=== PATIENT | female | born 1990 | race Caucasian/White ===

== ENCOUNTER 2016-10-24 00:16 | Emergency (ER) | payer MEDICAID ==
[2016-10-24 00:27] VITALS: TEMP 98.2
[2016-10-24] MEDS ORDERED: NS 1,000 ML IV ONE ×2 (00:28→00:36)
[2016-10-24 00:33] LABS: % IMMATURE GRANULYOCYTES 0.6 % (0.0-1.1); ABSOLUTE IMMATURE GRANULOCYTES 0.15 10^3/uL (0.00-0.10); ADD DIFF? NO; ADD MORPH? NO; ADD SCAN? NO; ATYPICAL LYMPHOCYTE FLAG 0 (0-99); FRAGMENT RBC FLAG 0 (0-99); HEMATOCRIT 41.1 % (38.0-47.0); HEMOGLOBIN 14.7 g/dL (12.6-16.3); LEFT SHIFT FLG 0 (0-99); LIPEMIA HEMOLYSIS FLAG 90 (0-99); MEAN CELL HEMOGLOBIN 31.4 pg (27.9-34.1); MEAN CELL HEMOGLOBIN CONCENTR. 35.8 g/dL (32.4-36.7); MEAN CELL VOLUME 87.8 fL (81.5-99.8); MEAN PLATELET VOLUME 10.2 fL (8.7-11.7); PLATELET CLUMPS FLAG 0 (0-99); PLATELET COUNT 360 10^3/uL (150-400); RED BLOOD CELL COUNT 4.68 10^6/uL (4.18-5.33); RED CELL DISTRIBUTION WIDTH 12.3 % (11.5-15.2)
[2016-10-24] MEDS ORDERED: PROMETHAZINE HCL 25 MG/ML INJ IVP ONE (00:36)
[2016-10-24] MEDS ORDERED: KETOROLAC 30 MG/1 ML SDV IVP ONE (00:36)
--- NOTE | 2016-10-24 00:39 | EDPHY ---
H & P Stated Complaint: CVS Time Seen by Provider: 10/24/16 00:31 HPI/ROS: CHIEF COMPLAINT: Vomiting and diarrhea HISTORY OF PRESENT ILLNESS: The patient is a 26-year-old female who comes to the emergency department by EMS complaining of nausea, vomiting and diarrhea. She has a history of cyclic vomiting syndrome however she states that today she has been exposed to coworkers who have had GI bugs. She has had diarrhea which is unusual for her. No blood in her vomit or stool. No fever. No chest pain or shortness of breath. She does have abdominal pain and describes it as moderate and baseline. REVIEW OF SYSTEMS: Constitutional: denies: chills, fever, recent illness, recent injury EENTM: denies: blurred vision, double vision, nose congestion Respiratory: denies: cough, shortness of breath Cardiac: denies: chest pain, irregular heart rate, lightheadedness, palpitations Gastrointestinal/Abdominal: See HPI Genitourinary: denies: dysuria, frequency, hematuria, pain Musculoskeletal: denies: joint pain, muscle pain Skin: denies: lesions, rash, jaundice, bruising Neurological: denies: headache, numbness, paresthesia, tingling, dizziness, weakness Hematologic/Lymphatic: denies: blood clots, easy bleeding, easy bruising Immunologic/allergic: denies: HIV/AIDS, transplant EXAM: GENERAL: Well-appearing, well-nourished and in no acute distress. HEAD: Atraumatic, normocephalic. EYES: Pupils equal round and reactive to light, extraocular movements intact, sclera anicteric, conjunctiva are normal. ENT: TMs normal, nares patent, oropharynx clear without exudates. Moist mucous membranes. NECK: Normal range of motion, supple without lymphadenopathy or JVD. LUNGS: Breath sounds clear to auscultation bilaterally and equal. No wheezes rales or rhonchi. HEART: Regular rate and rhythm without murmurs, rubs or gallops. ABDOMEN: Soft, nontender, normoactive bowel sounds. No guarding, no rebound. No masses appreciated. BACK: No CVA tenderness, no spinal tenderness, step-offs or deformities EXTREMITIES: Normal range of motion, no pitting or edema. No clubbing or cyanosis. NEUROLOGICAL: Cranial nerves II through XII grossly intact. Normal speech, normal gait. 5/5 strength, normal movement in all extremities, normal sensation PSYCH: Normal mood, normal affect. SKIN: Warm, dry, normal turgor, no visible rashes or lesions. Source: Patient, EMS Exam Limitations: No limitations - Personal History LMP (Females 10-55): 1-7 Days Ago Current Tetanus Diphtheria and Acellular Pertussis (TDAP): Yes Tetanus Vaccine Date: 2011 - Medical/Surgical History Hx Asthma: Yes Hx Chronic Respiratory Disease: No Hx Diabetes: No Hx Cardiac Disease: No Hx Renal Disease: No Hx Cirrhosis: No Hx Alcoholism: No Hx HIV/AIDS: No Hx Splenectomy or Spleen Trauma: No Other PMH: PMH: anxiety, asthma, CVS (cyclic vomiting syndrome), ptsd, frequent marijuana use. PSH: T&A - Family History Significant Family History: Hypertension - Social History Smoking Status: Never smoked Alcohol Use: Occasionally Drug Use: Marijuana Constitutional: Initial Vital Signs Temperature (C) 36.8 C 10/24/16 00:23 Heart Rate 87 10/24/16 00:23 Respiratory Rate 18 10/24/16 00:23 Blood Pressure 147/88 H 10/24/16 00:23 O2 Sat (%) 98 10/24/16 00:23 O2 Delivery Mode Room Air Allergies/Adverse Reactions: aspirin Allergy (Unknown, Verified 10/24/16 00:23) Unknown amoxicillin Allergy (Verified 10/24/16 00:23) amoxicillin trihydrate [From Augmentin] Allergy (Verified 10/24/16 00:23) potassium clavulanate [From Augmentin] Allergy (Verified 10/24/16 00:23) contrast dye Allergy (Uncoded 09/13/16 20:38) Home Medications: Medication Instructions Recorded Hydroxyzine HCl 04/29/16 Zofran 04/29/16 Citalopram 06/21/16 Prazosin HCl 06/21/16 VYVANSE 06/21/16 Cephalexin [Keflex] 500 mg PO Q6H #28 cap 06/29/16 Promethazine 25 mg Prepack #4 1 btl TAKEHOME Q6-8PRN PRN #1 btl 06/29/16 [Phenergan 25 mg Prepack #4] Promethazine HCl [Phenergan 25mg 25 mg PO Q4-6PRN PRN #14 tab 07/05/16 (*)] Promethazine HCl [Phenergan 25mg 25 mg PO TID PRN #30 tab 10/24/16 (RX)] Medical Decision Making ED Course/Re-evaluation: During the patient's last visit she received Benadryl, Phenergan, Haldol and fluids and felt much better. I will treat her with this initially as well as Toradol. 2:20 a.m. we discussed the patient's CT and lab results. She is feeling much better. She is not having any abdominal pain currently. She is eager to go home and declines further workup or testing. She does wish to have a prescription for Phenergan. We discussed indications for returning. Differential Diagnosis: Partial list of the Differential diagnosis considered include but were not limited to; gastritis, food poisoning, cyclic vomiting and although unlikely based on the history and physical exam, I also considered obstruction, ischemia , pancreatitis, biliary disease. I discussed these differential diagnoses and the plan with the patient as well as the usual and expected course. The patient understands that the diagnosis is provisional and that in medicine we are not always correct and that further workup is often warranted. Usual and customary warnings were given. All of the patient's questions were answered. The patient was instructed to return to the emergency department should the symptoms at all worsen or return, otherwise to followup with the physician as we discussed. - Data Points Laboratory Results: Laboratory Results 10/24/16 00:20 10/24/16 00:20 10/24/16 00:20 WBC 26.32 H 10^3/uL (3.80-9.50) RBC 4.68 10^6/uL (4.18-5.33) Hgb 14.7 g/dL (12.6-16.3) Hct 41.1 % (38.0-47.0) MCV 87.8 fL (81.5-99.8) MCH 31.4 pg (27.9-34.1) MCHC 35.8 g/dL (32.4-36.7) RDW 12.3 % (11.5-15.2) Plt Count 360 10^3/uL (150-400) MPV 10.2 fL (8.7-11.7) Neut % (Auto) 87.4 H % (39.3-74.2) Lymph % (Auto) 6.4 L % (15.0-45.0) [place] % (Auto) 5.1 % (4.5-13.0) Eos % (Auto) 0.1 L % (0.6-7.6) Baso % (Auto) 0.4 % (0.3-1.7) Nucleat RBC Rel Count 0.0 % (0.0-0.2) Absolute Neuts (auto) 22.99 H 10^3/uL (1.70-6.50) Absolute Lymphs (auto) 1.69 10^3/uL (1.00-3.00) Absolute Monos (auto) 1.35 H 10^3/uL (0.30-0.80) Absolute Eos (auto) 0.03 10^3/uL (0.03-0.40) Absolute Basos (auto) 0.11 H 10^3/uL (0.02-0.10) Absolute Nucleated RBC 0.00 10^3/uL (0-0.01) Immature Gran % 0.6 % (0.0-1.1) Immature Gran # 0.15 H 10^3/uL (0.00-0.10) Sodium 145 H mEq/L (134-144) Potassium 4.3 mEq/L (3.5-5.2) Chloride 108 mEq/L (97-110) Carbon Dioxide 20 L mEq/l (22-31) Anion Gap 17 mEq/L (8-16) BUN 6 L mg/dL (7-23) Creatinine 0.7 mg/dL (0.6-1.0) Estimated GFR > 60 Glucose 171 H mg/dL (70-100) Calcium 9.7 mg/dL (8.5-10.4) Total Bilirubin 1.5 H mg/dL (0.1-1.4) Conjugated Bilirubin 0.7 H mg/dL (0.0-0.5) Unconjugated Bilirubin 0.8 mg/dL (0.0-1.1) AST 28 IU/L (14-46) ALT 31 IU/L (9-52) Alkaline Phosphatase 100 IU/L (38-126) Total Protein 8.5 H g/dL (6.3-8.2) Albumin 5.1 H g/dL (3.5-5.0) Lipase 60.0 IU/L (23-300) Beta HCG, Qual NEGATIVE Medications Given: Discontinued Medications Diphenhydramine HCl (Benadryl Injection) 50 mg IVP EDNOW ONE Stop: 10/24/16 00:38 Last Admin: 10/24/16 01:04 Dose: 50 mg Sodium Chloride (Ns) 1,000 mls @ 0 mls/hr IV ONCE ONE PRN Reason: Wide Open Stop: 10/24/16 00:29 Last Admin: 10/24/16 00:29 Dose: 1,000 mls Sodium Chloride (Ns) 1,000 mls @ 0 mls/hr IV ONCE ONE PRN Reason: Wide Open Stop: 10/24/16 00:37 Last Admin: 10/24/16 00:55 Dose: Not Given Ketorolac Tromethamine (Toradol) 30 mg IVP EDNOW ONE Stop: 10/24/16 00:37 Last Admin: 10/24/16 01:03 Dose: 30 mg Promethazine HCl (Phenergan Injection) 25 mg IVP EDNOW ONE Stop: 10/24/16 00:37 Last Admin: 10/24/16 01:04 Dose: 25 mg Departure - Departure Disposition: Home, Routine, Self-Care Clinical Impression: Diarrhea Qualifiers: Qualifier Code: (R19.7) Diarrhea, unspecified Cyclic vomiting syndrome Qualifiers: Qualifier Code: (G43.A0) Cyclical vomiting, not intractable Condition: Fair Instructions: Acute Nausea and Vomiting (ED) Referrals: [place] STATE,. [Primary Care Provider] - As per Instructions Xena Wilkinson MD [Medical Doctor] - As per Instructions Prescriptions: Promethazine HCl [Phenergan 25mg (RX)] 25 mg PO TID PRN #30 tab PRN Reason: Nausea/Vomiting, Use 2nd
[2016-10-24 00:55] LABS: ALANINE AMINOTRANSFERASE 31 IU/L (9-52); ALBUMIN 5.1 g/dL (3.5-5.0); ALKALINE PHOSPHATASE 100 IU/L (38-126); ANION GAP 17 mEq/L (8-16); ASPARTATE AMINOTRANSFERASE 28 IU/L (14-46); BILIRUBIN,TOTAL 1.5 mg/dL (0.1-1.4); BILIRUBIN-CONJUGATED 0.7 mg/dL (0.0-0.5); BILIRUBIN-UNCONJUGATED 0.8 mg/dL (0.0-1.1); CALCIUM 9.7 mg/dL (8.5-10.4); CARBON DIOXIDE 20 mEq/l (22-31); CHLORIDE 108 mEq/L (97-110); CREATININE 0.7 mg/dL (0.6-1.0); GLOMERULAR FILTRATION RATE > 60; GLUCOSE 171 mg/dL (70-100); POTASSIUM 4.3 mEq/L (3.5-5.2); SODIUM 145 mEq/L (134-144); TOTAL PROTEIN 8.5 g/dL (6.3-8.2)
[2016-10-24 02:36] VITALS: BP 109/49; PULSE 62; RESP 16; O2SAT 97
--- NOTE | 2016-10-24 12:18 | CT ---
CT Abdomen and Pelvis Unenhanced (Renal Stone Protocol) Indication: Periumbilical and right flank pain with diarrhea. Comparison: CT abdomen and pelvis 06/29/2016 and 02/09/2015, pelvic ultrasound March 21, 2015 Technique: Axial unenhanced CT imaging was performed through the abdomen and pelvis without contrast. Dose red uction techniques were utilized. Findings: Abdomen: The lung bases are clear. The imaged noncontrast portions of the liver, spleen, gallbladder, pancreas and adrenal glands are un remarkable. No renal or ureteral stones are identified. There is no obstructive uropathy. Enteric as sessment is limited by under distention and lack of enteric contrast. Moderate stool is present in th e rectum. The colon and small bowel are normal caliber. The appendix is normal. There is no free air. A small fat-containing periumbilical hernia is present. The aorta is normal caliber. No aggressive osseous lesions are identified. Pelvis: No bladder or distal ureteral calcifications are identified. Malpositioned IUD is again not ed, with the right arm of the IUD likely within the myometrium, with the IV positioned low in the [place]. There is trace free fluid in the pelvis. Impression: 1. No acute findings. 2. Malpositioned IUD. Attention: This CT examination is specifically designed to evaluate patients who are clinically susp ected of having acute obstructive uropathy. This examination does not use radiographic contrast, and as such, provides only a limited evaluation of the abdomen, pelvis and retroperitoneum. If there i s further clinical suspicion for pathological conditions other than obstructive uropathy, a complete CT evaluation of the abdomen and pelvis utilizing intravenous, oral, and rectal contrast should be co nsidered. Findings discussed with Mike Duenas 10/24/2016 at 149 hours. The preliminary and final reports were concordant.
== END 2016-10-24 02:36 | disposition home or self-care (01) ==
LOC: EDUNIT#
DX: R19.7 Diarrhea, unspecified (principal); G43.A0 Cyclical vomiting, in migraine, not intractable; J45.909 Unspecified asthma, uncomplicated; E86.0 Dehydration
CPT/HCPCS: 96374; J1200; J1885; J2550

== ENCOUNTER 2016-10-24 06:52 | Emergency (ER) | payer MEDICAID ==
--- NOTE | 2016-10-24 06:52 | EDPHY ---
H & P Time Seen by Provider: 10/24/16 06:52 HPI/ROS: CHIEF COMPLAINT: Nausea and vomiting HISTORY OF PRESENT ILLNESS: This 26-year-old woman was seen earlier this evening in our emergency department for nausea and vomiting. She has a history of cyclic vomiting. She has CT at 1:20 a.m. today which was reported per Dr. Duenas by Dr. Mathews was normal. She was noted to have a leukocytosis of 26 ,000 and a negative test. Her venous bicarbonate was 20. Patient presents now with recurrent nausea and vomiting for the last 2-3 hours. She says symptoms are severe but not associated with hematemesis or coffee- ground emesis. She does have diffuse abdominal cramping and symptoms are worse when she tries to eat or drink anything. She can' t identify any recent triggers other than a recent URI and working more than usual. REVIEW OF SYSTEMS: Eye: no change in vision ENT: No ear pain. No eye symptoms. Cardiac: no chest pain or syncope Pulmonary: Recent nonproductive cough and sore throat and exposure to other people with URI symptoms. Abdomen: HPI. Does have some diarrhea but without blood or melena. Musculoskeletal: no back pain Skin: no rash Neuro: no headache Constitutional: no fever : no urinary symptoms or vaginal symptoms A comprehensive 10 point review of systems is otherwise negative aside from elements mentioned in the history of present illness. PAST MEDICAL HISTORY: Previous visits in our system for similar symptoms includes most recently; September 13, July 05, July 05, June, June 24, June 21. Includes cyclic vomiting, anxiety, PTSD. Asthma. Social history: Marijuana user. with 2 children General Appearance: Alert and conversant, cooperative. Eyes: No scleral icterus. ENT, Mouth: Dry mucous membranes. Otherwise normal pharynx without erythema exudate or trismus. Respiratory: Normal respiratory effort, breath sounds equal, lungs are clear to auscultation. Cardiovascular: Regular rate and rhythm. Gastrointestinal: Abdomen is soft and non tender. Neurological: Alert and oriented x3. Normally conversant. Face symmetric, normal movement and sensation in all extremities. Skin: Warm and dry, no rashes. Musculoskeletal: No peripheral edema and no joint swelling. Psychiatric: Moderately anxious. Hyperventilating with bilateral carpal spasms. Emergency Department course/MDM: IV Ativan 1 mg and normal saline 2 L, CT scan reviewed without IV contrast; radiology report preliminary entered, as "Nothing acute. Malpositioned IUD ( unchanged since 2014).". EKG performed to evaluate intervals prior to administration of haloperidol. She had normal CT imaging and negative lipase at previous visit. test negative earlier tonight. 720: EKG reviewed, haloperidol 2.5 mg and Benadryl 50 mg IV ordered. 810: White blood cell count noted to be decreased from previous at 18, but hematocrit 34 which is approximately 6 point drop from her baseline. At this time examined by me, sleepy, more comfortable, refused rectal exam. 849: Repeat CBC shows hematocrit 32. Possibility of gastrointestinal hemorrhage is considered. Also possibly dilutional with multiple liters of IV normal saline. 905: Patient feels better and wants to leave. 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 I discussed with her my concern about her hematocrit being 32 and possible gastrointestinal blood loss. My recommendation is for admission for further workup. Patient says she wants to leave and although she understands that my concern is that she might be losing blood her intestinal tract, she can't miss work today. She was seen by case management as well; to see if there is anything we can help with to change her mind. She also clearly appears to have capacity to make decisions regarding her care. Patient was warned regarding potential morbidity and mortality including but not limited to syncope or or blood transfusion if delayed diagnosis of gastrointestinal bleeding or other serious medical condition causing decrease in hematocrit. States she understands risks but still wants to leave because of work. 946: Urine normal, tolerating oral fluids, discharge per patient request against medical advice. Constitutional: Initial Vital Signs Temperature (C) 36.8 C 10/24/16 06:58 Heart Rate 87 10/24/16 06:58 Respiratory Rate 16 10/24/16 06:58 Blood Pressure 158/89 H 10/24/16 06:58 O2 Sat (%) 98 10/24/16 06:58 O2 Delivery Mode Room Air Allergies/Adverse Reactions: aspirin Allergy (Unknown, Verified 10/24/16 06:58) Unknown amoxicillin Allergy (Verified 10/24/16 06:58) amoxicillin trihydrate [From Augmentin] Allergy (Verified 01/26/17 06:58) potassium clavulanate [From Augmentin] Allergy (Verified 10/24/16 06:58) contrast dye Allergy (Uncoded 10/24/16 06:58) Home Medications: Medication Instructions Recorded Hydroxyzine HCl 04/29/16 Zofran 04/29/16 Citalopram 06/21/16 Prazosin HCl 06/21/16 VYVANSE 06/21/16 Cephalexin [Keflex] 500 mg PO Q6H #28 cap 06/29/16 Promethazine 25 mg Prepack #4 1 btl TAKEHOME Q6-8PRN PRN #1 btl 06/29/16 [Phenergan 25 mg Prepack #4] Promethazine HCl [Phenergan 25mg 25 mg PO Q4-6PRN PRN #14 tab 07/05/16 (*)] Promethazine HCl [Phenergan 25mg 25 mg PO TID PRN #30 tab 10/24/16 (RX)] Medical Decision Making - Diagnostics EKG Interpretation: 12-lead EKG interpreted by me; official reading is in trace master. My interpretation is sinus rhythm, rate 76, normal intervals. Differential Diagnosis: Differential considered including but not limited to cyclic vomiting syndrome, bowel obstruction, appendicitis, upper GI bleed, cholecystitis, pancreatitis. - Data Points Laboratory Results: Laboratory Results 10/24/16 08:35 10/24/16 07:43 10/24/16 10/24/16 10/24/16 09:25 08:35 07:43 WBC 15.90 H 10^3/uL 18.35 H D 10^3/uL (3.80-9.50) (3.80-9.50) RBC 3.55 L 10^6/uL 3.88 L 10^6/uL (4.18-5.33) (4.18-5.33) Hgb 11.3 L g/dL 12.1 L g/dL (12.6-16.3) (12.6-16.3) Hct 32.1 L % 34.0 L % (38.0-47.0) (38.0-47.0) MCV 90.4 fL 87.6 fL (81.5-99.8) (81.5-99.8) MCH 31.8 pg 31.2 pg (27.9-34.1) (27.9-34.1) MCHC 35.2 g/dL 35.6 g/dL (32.4-36.7) (32.4-36.7) RDW 12.3 % 12.3 % (11.5-15.2) (11.5-15.2) Plt Count 256 10^3/uL 275 D 10^3/uL (150-400) (150-400) MPV 10.1 fL 10.2 fL (8.7-11.7) (8.7-11.7) Neut % (Auto) 92.6 H % 93.9 H % (39.3-74.2) (39.3-74.2) Lymph % (Auto) 3.3 L % 2.7 L % (15.0-45.0) (15.0-45.0) [place] % (Auto) 3.4 L % 2.6 L % (4.5-13.0) (4.5-13.0) Eos % (Auto) 0.0 L % 0.0 L % (0.6-7.6) (0.6-7.6) Baso % (Auto) 0.3 % 0.3 % (0.3-1.7) (0.3-1.7) Nucleat RBC Rel Count 0.0 % 0.0 % (0.0-0.2) (0.0-0.2) Absolute Neuts (auto) 14.73 H 10^3/uL 17.24 H 10^3/uL (1.70-6.50) (1.70-6.50) Absolute Lymphs (auto) 0.52 L 10^3/uL 0.49 L 10^3/uL (1.00-3.00) (1.00-3.00) Absolute Monos (auto) 0.54 10^3/uL 0.47 10^3/uL (0.30-0.80) (0.30-0.80) Absolute Eos (auto) 0.00 L 10^3/uL 0.00 L 10^3/uL (0.03-0.40) (0.03-0.40) Absolute Basos (auto) 0.04 10^3/uL 0.06 10^3/uL (0.02-0.10) (0.02-0.10) Absolute Nucleated RBC 0.00 10^3/uL 0.00 10^3/uL (0-0.01) (0-0.01) Immature Gran % 0.4 % 0.5 % (0.0-1.1) (0.0-1.1) Immature Gran # 0.07 10^3/uL 0.09 10^3/uL (0.00-0.10) (0.00-0.10) Sodium 141 mEq/L (134-144) Potassium 3.7 mEq/L (3.5-5.2) Chloride 110 mEq/L (97-110) Carbon Dioxide 18 L mEq/l (22-31) Anion Gap 13 mEq/L (8-16) BUN 7 mg/dL (7-23) Creatinine 0.6 mg/dL (0.6-1.0) Estimated GFR > 60 Glucose 132 H mg/dL (70-100) Calcium 8.7 mg/dL (8.5-10.4) Urine Color PALE YELLOW Urine Appearance CLEAR Urine pH 7.0 (5.0-7.5) Ur Specific [place] 1.002 (1.002-1.030) Urine Protein NEGATIVE (NEGATIVE) Urine Ketones TRACE H (NEGATIVE) Urine Blood NEGATIVE (NEGATIVE) Urine Nitrate NEGATIVE (NEGATIVE) Urine Bilirubin NEGATIVE (NEGATIVE) Urine Urobilinogen NEGATIVE EU (0.2-1.0) Ur Leukocyte Esterase NEGATIVE (NEGATIVE) Ur Culture Indicated? NOT INDICATED (NI) Urine Glucose NEGATIVE (NEGATIVE) Medications Given: Discontinued Medications Diphenhydramine HCl (Benadryl Injection) 50 mg IVP EDNOW ONE Stop: 10/24/16 07:21 Last Admin: 10/24/16 07:49 Dose: 50 mg Haloperidol Lactate (Haldol Injection) 2.5 mg IV EDNOW ONE Stop: 10/24/16 07:19 Last Admin: 10/24/16 07:48 Dose: 2.5 mg Sodium Chloride (Ns) 1,000 mls @ 0 mls/hr IV ONCE ONE PRN Reason: Wide Open Stop: 10/24/16 07:10 Last Admin: 10/24/16 07:17 Dose: 1,000 mls Sodium Chloride (Ns) 1,000 mls @ 0 mls/hr IV ONCE ONE PRN Reason: Wide Open Stop: 10/24/16 07:10 Last Admin: 10/24/16 07:17 Dose: 1,000 mls Sodium Chloride (Ns) 1,000 mls @ 0 mls/hr IV ONCE ONE PRN Reason: Wide Open Stop: 10/24/16 08:24 Last Admin: 10/24/16 08:45 Dose: 1,000 mls Lorazepam (Ativan Injection) 1 mg IVP EDNOW ONE Stop: 10/24/16 07:10 Last Admin: 10/24/16 07:17 Dose: 1 mg Departure - Departure Disposition: Against Medical Advice Clinical Impression: Dehydration Cyclic vomiting syndrome Qualifiers: Vomiting Intractability: unspecified Nausea presence: with nausea Qualifier Code: (G43.A0) Cyclical vomiting, not intractable Condition: Good Instructions: Acute Nausea and Vomiting (ED) Referrals: [facility] [Outside] - As per Instructions
[2016-10-24] MEDS ORDERED: LORazepam 2 MG/ML INJ IVP ONE (07:09)
[2016-10-24] MEDS ORDERED: NS 1,000 ML IV ONE ×3 (07:09→08:23)
[2016-10-24] MEDS ORDERED: HALOPERIDOL LACT 5 MG/ML INJ IV ONE (07:18)
--- NOTE | 2016-10-24 07:19 | CPEKG ---
Heart Rate: 76 RR Interval: 789 P-R Interval: 136 QRSD Interval: 88 QT Interval: 420 QTC Interval: 473 P [place]: 82 QRS [place]: 73 T Wave [place]: 50 EKG Severity - BORDERLINE ECG - EKG Impression: SINUS RHYTHM Electronically Signed By: Rahul Power 24-Oct-2016 08:16:24
[2016-10-24 07:55] LABS: % IMMATURE GRANULYOCYTES 0.5 % (0.0-1.1); ABSOLUTE IMMATURE GRANULOCYTES 0.09 10^3/uL (0.00-0.10); ADD DIFF? NO; ADD MORPH? NO; ADD SCAN? NO; ATYPICAL LYMPHOCYTE FLAG 0 (0-99); FRAGMENT RBC FLAG 0 (0-99); HEMOGLOBIN 12.1 g/dL (12.6-16.3); LEFT SHIFT FLG 0 (0-99); LIPEMIA HEMOLYSIS FLAG 90 (0-99); MEAN CELL HEMOGLOBIN 31.2 pg (27.9-34.1); MEAN CELL HEMOGLOBIN CONCENTR. 35.6 g/dL (32.4-36.7); MEAN CELL VOLUME 87.6 fL (81.5-99.8); MEAN PLATELET VOLUME 10.2 fL (8.7-11.7); PLATELET CLUMPS FLAG 0 (0-99); PLATELET COUNT 275 10^3/uL (150-400); RED BLOOD CELL COUNT 3.88 10^6/uL (4.18-5.33); RED CELL DISTRIBUTION WIDTH 12.3 % (11.5-15.2)
[2016-10-24 08:09] VITALS: O2SAT 97
[2016-10-24 08:20] LABS: ANION GAP 13 mEq/L (8-16); CALCIUM 8.7 mg/dL (8.5-10.4); CARBON DIOXIDE 18 mEq/l (22-31); CHLORIDE 110 mEq/L (97-110); CREATININE 0.6 mg/dL (0.6-1.0); GLOMERULAR FILTRATION RATE > 60; GLUCOSE 132 mg/dL (70-100); POTASSIUM 3.7 mEq/L (3.5-5.2); SODIUM 141 mEq/L (134-144)
[2016-10-24 08:46] LABS: % IMMATURE GRANULYOCYTES 0.4 % (0.0-1.1); ABSOLUTE IMMATURE GRANULOCYTES 0.07 10^3/uL (0.00-0.10); ADD DIFF? NO; ADD MORPH? NO; ADD SCAN? NO; ATYPICAL LYMPHOCYTE FLAG 0 (0-99); FRAGMENT RBC FLAG 0 (0-99); HEMATOCRIT 32.1 % (38.0-47.0); HEMOGLOBIN 11.3 g/dL (12.6-16.3); LEFT SHIFT FLG 0 (0-99); LIPEMIA HEMOLYSIS FLAG 90 (0-99); MEAN CELL HEMOGLOBIN 31.8 pg (27.9-34.1); MEAN CELL HEMOGLOBIN CONCENTR. 35.2 g/dL (32.4-36.7); MEAN CELL VOLUME 90.4 fL (81.5-99.8); MEAN PLATELET VOLUME 10.1 fL (8.7-11.7); PLATELET CLUMPS FLAG 0 (0-99); PLATELET COUNT 256 10^3/uL (150-400); RED BLOOD CELL COUNT 3.55 10^6/uL (4.18-5.33); RED CELL DISTRIBUTION WIDTH 12.3 % (11.5-15.2)
[2016-10-24 09:40] LABS: COLOR PALE YELLOW; LEUKOCYTE ESTERASE,URINE NEGATIVE (NEGATIVE); NITRITE,URINE NEGATIVE (NEGATIVE)
[2016-10-24 10:05] VITALS: BP 130/100; PULSE 84; RESP 14; TEMP 97.5
== END 2016-10-24 10:05 | disposition left against medical advice (07) ==
LOC: EDUNIT#
DX: G43.A0 Cyclical vomiting, in migraine, not intractable (principal); E86.0 Dehydration; J45.909 Unspecified asthma, uncomplicated
CPT/HCPCS: 96374; J1200

== ENCOUNTER 2017-01-23 21:07 | Emergency (ER) | payer MEDICAID ==
[2017-01-23 21:19] VITALS: TEMP 98.2
[2017-01-23] MEDS ORDERED: ONDANSETRON DISINTEGRATING 4 MG TAB PO ONE (21:19)
[2017-01-23] MEDS ORDERED: ONDANSETRON DISINTEGRATING 4 MG TAB ONE (21:21)
[2017-01-23] MEDS ORDERED: LORazepam 2 MG/ML INJ ONE (21:49)
[2017-01-23] MEDS ORDERED: ONDANSETRON 4 MG/2 ML VIAL ONE (21:49)
[2017-01-23] MEDS ORDERED: LORazepam 2 MG/ML INJ IVP ONE (21:53)
[2017-01-23] MEDS ORDERED: NS 1,000 ML IV ONE (21:53)
[2017-01-23] MEDS ORDERED: ONDANSETRON 4 MG/2 ML VIAL IVP ONE (21:53)
[2017-01-23] MEDS ORDERED: HALOPERIDOL LACT 5 MG/ML INJ IVP ONE (22:30)
--- NOTE | 2017-01-23 23:52 | EDPHY ---
H & P Stated Complaint: NAUSEA VOMITING AFTER BAD SUSHI Time Seen by Provider: 01/23/17 22:24 HPI/ROS: Chief Complaint: Nausea vomiting abdominal pain HPI: 26-year-old with a history of cyclic vomiting syndrome presenting with nausea vomiting after eating bed sushi this evening. Patient states that her symptoms are the same as her usual. She states that she does use daily cannabinoids to treat her symptoms but does not believe that these are the cause. No hematemesis. No fevers or chills. No chest pain shortness of breath. Symptoms are similar to her prior episodes. Patient states that usually she gets IV fluids, Haldol, Ativan and Zofran. ROS: 10 point Review of Systems is negative except as noted in the HPI. PMH: Cyclic vomiting Social History: No smoking, no alcohol, daily cannabinoids Family History: non-contributory Physical Exam: Gen: Awake, Alert, No Distress HEENT: Nose: no rhinorrhea Eyes: PERRLA, EOMI Mouth: Moist mucosa Neck: Supple, no JVD Chest: nontender, lungs clear to auscultation Heart: S1, S2 normal, no murmur Abd: Soft, no focal tenderness, distractible Back: no CVA tenderness, no midline tenderness Ext: no edema, non-tender Skin: no rash Neuro: CN II-XII intact, Sensation grossly intact, Strength 5/5 in bilateral upper and lower extremities - Personal History LMP (Females 10-55): 8-14 Days Ago Current Tetanus/Diphtheria Vaccine: Yes Current Tetanus Diphtheria and Acellular Pertussis (TDAP): Yes Tetanus Vaccine Date: 2011 - Medical/Surgical History Hx Asthma: Yes Hx Chronic Respiratory Disease: No Hx Diabetes: No Hx Cardiac Disease: No Hx Renal Disease: No Hx Cirrhosis: No Hx Alcoholism: No Hx HIV/AIDS: No Hx Splenectomy or Spleen Trauma: No Other PMH: PMH: anxiety, asthma, CVS (cyclic vomiting syndrome), ptsd, frequent marijuana use. PSH: T&A - Social History Smoking Status: Never smoked Constitutional: Initial Vital Signs Temperature (C) 36.8 C 01/23/17 21:17 Heart Rate 123 H 01/23/17 21:17 Respiratory Rate 18 01/23/17 21:17 Blood Pressure 147/120 H 01/23/17 21:17 O2 Sat (%) 98 01/23/17 21:17 O2 Delivery Mode Room Air Allergies/Adverse Reactions: aspirin Allergy (Unknown, Verified 01/23/17 21:19) Unknown amoxicillin Allergy (Verified 01/23/17 21:19) amoxicillin trihydrate [From Augmentin] Allergy (Verified 01/23/17 21:19) potassium clavulanate [From Augmentin] Allergy (Verified 01/23/17 21:19) contrast dye Allergy (Uncoded 01/23/17 21:19) Home Medications: Medication Instructions Recorded Hydroxyzine HCl 04/29/16 Zofran 04/29/16 Citalopram 06/21/16 Prazosin HCl 06/21/16 VYVANSE 06/21/16 Cephalexin [Keflex] 500 mg PO Q6H #28 cap 06/29/16 Promethazine 25 mg Prepack #4 1 btl TAKEHOME Q6-8PRN PRN #1 btl 06/29/16 [Phenergan 25 mg Prepack #4] Promethazine HCl [Phenergan 25mg 25 mg PO Q4-6PRN PRN #14 tab 07/05/16 (*)] Promethazine HCl [Phenergan 25mg 25 mg PO TID PRN #30 tab 10/24/16 (RX)] Medical Decision Making ED Course/Re-evaluation: Patient presenting with her usual cyclic vomiting syndrome symptoms. No evidence of acute abdominal process at this time. I went to re-evaluate her and she was sleeping but when I walk in the room and she sees me she immediately asked for an emesis basin. She has not actually vomited in the department. He she is tolerating p.o. at this time. Will discharge with follow -up with primary care physician. - Data Points Medications Given: Discontinued Medications Haloperidol Lactate (Haldol Injection) 2.5 mg IVP EDNOW ONE Stop: 01/23/17 22:31 Last Admin: 01/23/17 22:43 Dose: 2.5 mg Sodium Chloride (Ns) 1,000 mls @ 0 mls/hr IV ONCE ONE PRN Reason: Wide Open Stop: 01/23/17 21:54 Last Admin: 01/23/17 21:54 Dose: 1,000 mls Lorazepam (Ativan Injection) 1 mg IVP EDNOW ONE Stop: 01/23/17 21:54 Last Admin: 01/23/17 21:54 Dose: 1 mg Ondansetron HCl (Zofran Odt) 4 mg PO EDNOW ONE Stop: 01/23/17 21:20 Last Admin: 01/23/17 21:22 Dose: 4 mg Ondansetron HCl (Zofran) 4 mg IVP EDNOW ONE Stop: 01/23/17 21:54 Last Admin: 01/23/17 21:54 Dose: 4 mg Departure - Departure Disposition: Home, Routine, Self-Care Clinical Impression: Cyclic vomiting syndrome Condition: Good Instructions: Acute Nausea and Vomiting (ED) Additional Instructions: Follow up with primary care physician at [facility] in 2-3 days for re- evaluation. Referrals: [facility] [Other] - As per Instructions
[2017-01-24 00:28] VITALS: BP 107/48; PULSE 82; RESP 16; O2SAT 92
== END 2017-01-24 00:28 | disposition home or self-care (01) ==
DX: G43.A0 Cyclical vomiting, in migraine, not intractable (principal); J45.909 Unspecified asthma, uncomplicated
CPT/HCPCS: 96374; J2060; J2405

== ENCOUNTER 2017-02-02 09:51 | Emergency (ER) | payer MEDICAID ==
[2017-02-02 09:56] VITALS: RESP 16; TEMP 98.4
[2017-02-02] MEDS ORDERED: NS 1,000 ML IV ONE ×2 (10:14)
[2017-02-02] MEDS ORDERED: LORazepam 2 MG/ML INJ IVP ONE (10:16)
[2017-02-02] MEDS ORDERED: HALOPERIDOL LACT 5 MG/ML INJ IVP ONE (10:17)
[2017-02-02 10:29] LABS: % IMMATURE GRANULYOCYTES 0.4 % (0.0-1.1); ABSOLUTE IMMATURE GRANULOCYTES 0.03 10^3/uL (0.00-0.10); ADD DIFF? NO; ADD MORPH? NO; ADD SCAN? NO; ATYPICAL LYMPHOCYTE FLAG 0 (0-99); FRAGMENT RBC FLAG 0 (0-99); HEMATOCRIT 40.5 % (38.0-47.0); HEMOGLOBIN 14.4 g/dL (12.6-16.3); LEFT SHIFT FLG 0 (0-99); LIPEMIA HEMOLYSIS FLAG 90 (0-99); MEAN CELL HEMOGLOBIN 30.5 pg (27.9-34.1); MEAN CELL HEMOGLOBIN CONCENTR. 35.6 g/dL (32.4-36.7); MEAN CELL VOLUME 85.8 fL (81.5-99.8); MEAN PLATELET VOLUME 10.3 fL (8.7-11.7); PLATELET CLUMPS FLAG 0 (0-99); PLATELET COUNT 285 10^3/uL (150-400); RED BLOOD CELL COUNT 4.72 10^6/uL (4.18-5.33); RED CELL DISTRIBUTION WIDTH 12.2 % (11.5-15.2)
[2017-02-02 10:57] LABS: ALANINE AMINOTRANSFERASE 29 IU/L (9-52); ALBUMIN 4.7 g/dL (3.5-5.0); ALKALINE PHOSPHATASE 67 IU/L (38-126); ANION GAP 12 mEq/L (8-16); ASPARTATE AMINOTRANSFERASE 19 IU/L (14-46); BILIRUBIN,TOTAL 0.5 mg/dL (0.1-1.4); BILIRUBIN-CONJUGATED 0.4 mg/dL (0.0-0.5); BILIRUBIN-UNCONJUGATED 0.1 mg/dL (0.0-1.1); CALCIUM 9.2 mg/dL (8.5-10.4); CARBON DIOXIDE 21 mEq/l (22-31); CHLORIDE 107 mEq/L (97-110); CREATININE 0.6 mg/dL (0.6-1.0); GLOMERULAR FILTRATION RATE > 60; GLUCOSE 118 mg/dL (70-100); POTASSIUM 4.3 mEq/L (3.5-5.2); SODIUM 140 mEq/L (134-144); TOTAL PROTEIN 7.6 g/dL (6.3-8.2)
--- NOTE | 2017-02-02 12:33 | EDPHY ---
H & P Stated Complaint: N/V - Personal History LMP (Females 10-55): 15-21 Days Ago Current Tetanus Diphtheria and Acellular Pertussis (TDAP): Yes Tetanus Vaccine Date: 2011 - Medical/Surgical History Hx Asthma: Yes Hx Chronic Respiratory Disease: No Hx Diabetes: No Hx Cardiac Disease: No Hx Renal Disease: No Hx Cirrhosis: No Hx Alcoholism: No Hx HIV/AIDS: No Hx Splenectomy or Spleen Trauma: No Other PMH: PMH: anxiety, asthma, CVS (cyclic vomiting syndrome), ptsd, frequent marijuana use. PSH: T&A - Social History Smoking Status: Never smoked Time Seen by Provider: 02/02/17 10:08 HPI/ROS: Chief complaint: Nausea and vomiting History of present illness: This is a 26-year-old female with a history of cyclic vomiting syndrome who presents to the emergency department for evaluation of nausea and vomiting. Patient reports the onset of symptoms over the last day. They have been slowly worsening. Multiple episodes of vomiting described as nonbloody, nonbilious. She has had associated abdominal cramping. She denies specific precipitating factors. She denies alleviating factors. She denies other associated signs or symptoms: No fevers or chills, no diarrhea or constipation, no urinary symptoms. Review of systems: A 10 point review of systems was obtained and other than described above was negative (Lj Cruz) - Physical Exam Exam: General Appearance: Alert, nontoxic. Eyes: Pupils equal and round no pallor or injection. ENT, Mouth: Mucous membranes moist. Respiratory: There are no retractions, lungs are clear to auscultation. Cardiovascular: Regular rate and rhythm. Gastrointestinal: Bowel sounds normal. Abdomen soft, nondistended, nontender. Neurological: Alert and oriented. Strength and sensation intact and symmetrical. Skin: Warm and dry, no rashes. Musculoskeletal: Neck is supple nontender. Extremities are symmetrical, full range of motion. Psychiatric: Patient is oriented X 3, there is no agitation. (Lj Cruz) Constitutional: Initial Vital Signs Temperature (C) 36.9 C 02/02/17 09:54 Heart Rate 83 02/02/17 09:54 Respiratory Rate 16 02/02/17 09:54 Blood Pressure 102/60 02/02/17 09:54 O2 Sat (%) 91 L 02/02/17 09:54 O2 Delivery Mode Room Air Allergies/Adverse Reactions: aspirin Allergy (Unknown, Verified 01/23/17 21:19) Unknown amoxicillin Allergy (Verified 01/23/17 21:19) amoxicillin trihydrate [From Augmentin] Allergy (Verified 01/23/17 21:19) potassium clavulanate [From Augmentin] Allergy (Verified 01/23/17 21:19) contrast dye Allergy (Uncoded 01/23/17 21:19) Home Medications: Medication Instructions Recorded Hydroxyzine HCl 04/29/16 Zofran 04/29/16 Citalopram 06/21/16 Prazosin HCl 06/21/16 VYVANSE 06/21/16 Cephalexin [Keflex] 500 mg PO Q6H #28 cap 06/29/16 Promethazine 25 mg Prepack #4 1 btl TAKEHOME Q6-8PRN PRN #1 btl 06/29/16 [Phenergan 25 mg Prepack #4] Promethazine HCl [Phenergan 25mg 25 mg PO Q4-6PRN PRN #14 tab 07/05/16 (*)] Promethazine HCl [Phenergan 25mg 25 mg PO TID PRN #30 tab 10/24/16 (RX)] Medical Decision Making ED Course/Re-evaluation: Patient seen under the supervision of my secondary supervising physician Dr. Nori Gold. Patient presents to the emergency department for nausea and vomiting with associated abdominal cramping. Patient is nontoxic. Physical exam is unremarkable including benign serial abdominal exams. Blood studies are unremarkable. She is symptomatically treated with improvement in symptoms. Patient is discharged home. Home care is discussed. Return precautions are given. Patient voiced understanding and agreement with plan. (Lj Cruz) Differential Diagnosis: Included but not limited to cyclic vomiting syndrome exacerbation, vomiting secondary to chronic marijuana use, gastritis, gastroenteritis, biliary tract disease, pancreatitis, colitis (Lj Cruz) Other Provider: The patient was evaluated and managed by the Physician Processing Analyst/ Nurse Practitioner. My co-signature indicates that I have reviewed this chart and I agree with the findings and plan of care as documented. I am the secondary supervising physician. (Nori Gold) - Data Points Laboratory Results: Laboratory Results 02/02/17 10:20 02/02/17 10:20 Medications Given: Discontinued Medications Diphenhydramine HCl (Benadryl Injection) 25 mg IVP EDNOW ONE Stop: 02/02/17 10:19 Last Admin: 02/02/17 10:34 Dose: 25 mg Haloperidol Lactate (Haldol Injection) 2.5 mg IVP EDNOW ONE Stop: 02/02/17 10:18 Last Admin: 02/02/17 10:34 Dose: 2.5 mg Sodium Chloride (Ns) 1,000 mls @ 0 mls/hr IV ONCE ONE PRN Reason: Wide Open Stop: 02/02/17 10:15 Last Admin: 02/02/17 10:21 Dose: 1,000 mls Sodium Chloride (Ns) 1,000 mls @ 0 mls/hr IV ONCE ONE PRN Reason: Wide Open Stop: 02/02/17 10:15 Last Admin: 02/02/17 11:00 Dose: 1,000 mls Lorazepam (Ativan Injection) 1 mg IVP EDNOW ONE Stop: 02/02/17 10:17 Last Admin: 02/02/17 10:25 Dose: 1 mg Departure - Departure Disposition: Home, Routine, Self-Care Clinical Impression: Vomiting and diarrhea Condition: Good Instructions: Acute Nausea and Vomiting (ED), Acute Diarrhea (ED) Additional Instructions: Follow-up with your primary care doctor or Gastroenterology for recheck If symptoms worsen or new symptoms develop return to the emergency room for recheck Referrals: Lynne Briceno [Primary Care Provider] - As per Instructions Shaggy Javier MD [Medical Doctor] - As per Instructions
[2017-02-02 12:42] VITALS: BP 114/64; PULSE 94; O2SAT 96
== END 2017-02-02 12:41 | disposition home or self-care (01) ==
DX: R11.10 Vomiting, unspecified (principal); R19.7 Diarrhea, unspecified; J45.909 Unspecified asthma, uncomplicated
CPT/HCPCS: 96374; J1200; J2060

== ENCOUNTER 2017-06-02 10:32 | Emergency (ER) | payer MEDICAID ==
--- NOTE | 2017-06-02 10:34 | EDPHY ---
H & P Time Seen by Provider: 06/02/17 10:33 - Personal History Tetanus Vaccine Date: 2011 - Medical/Surgical History Hx Asthma: Yes Hx Chronic Respiratory Disease: No Hx Diabetes: No Hx Cardiac Disease: No Hx Renal Disease: No Hx Cirrhosis: No Hx Alcoholism: No Hx HIV/AIDS: No Hx Splenectomy or Spleen Trauma: No Other PMH: PMH: anxiety, asthma, CVS (cyclic vomiting syndrome), ptsd, frequent marijuana use. PSH: T&A - Social History Smoking Status: Never smoked Constitutional: Initial Vital Signs Temperature (C) 36.4 C 06/02/17 10:33 Heart Rate 110 H 06/02/17 10:33 Respiratory Rate 16 06/02/17 10:33 Blood Pressure 89/77 L 06/02/17 10:33 O2 Sat (%) 98 06/02/17 10:33 O2 Delivery Mode Room Air O2 (L/minute) 2 Allergies/Adverse Reactions: aspirin Allergy (Unknown, Verified 01/23/17 21:19) Unknown amoxicillin Allergy (Verified 01/23/17 21:19) amoxicillin trihydrate [From Augmentin] Allergy (Verified 01/23/17 21:19) potassium clavulanate [From Augmentin] Allergy (Verified 01/23/17 21:19) contrast dye Allergy (Uncoded 01/23/17 21:19) Home Medications: Medication Instructions Recorded Hydroxyzine HCl 04/29/16 Zofran 04/29/16 Citalopram 06/21/16 Prazosin HCl 06/21/16 VYVANSE 06/21/16 Cephalexin [Keflex] 500 mg PO Q6H #28 cap 06/29/16 Promethazine 25 mg Prepack #4 1 btl TAKEHOME Q6-8PRN PRN #1 btl 06/29/16 [Phenergan 25 mg Prepack #4] Promethazine HCl [Phenergan 25mg 25 mg PO Q4-6PRN PRN #14 tab 07/05/16 (*)] Promethazine HCl [Phenergan 25mg 25 mg PO TID PRN #30 tab 10/24/16 (RX)] Medical Decision Making ED Course/Re-evaluation: CHIEF COMPLAINT: Cyclic vomiting HISTORY OF PRESENT ILLNESS: The patient is a 27 y/o female with a history of cyclic vomiting complaining of acute vomiting onset this morning around 06:00, about 4.5 hours ago. This is her 10th ED visit here in the last 12 months for the same complaint. Her symptoms today are exactly the same as previous episodes. She denies hematemesis. She denies abdominal pain, urinary symptoms, fever, or other complaints. She smokes marijuana regularly. REVIEW OF SYSTEMS: A 10 point review of systems was performed and is negative with the exception of the elements mentioned in the history of present illness. PHYSICAL EXAM: HR, BP, O2 Sat, RR. Temp noted General Appearance: Alert, well hydrated, appropriate, and non-toxic appearing. Head: Atraumatic without scalp tenderness or obvious injury Eyes: Pupils equal, round, reactive to light and accommodation, EOMI, no trauma , no injection. Nose: Atraumatic, no rhinorrhea, clear. Throat: Mucus membranes moist. Neck: Supple, nontender, no lymphadenopathy. Respiratory: No retractions, no distress, no wheezes, and no accessory muscle use. Lungs are clear to auscultation bilaterally. Cardiovascular: Regular rate and rhythm, no murmurs, rubs, or gallops. Good capillary refill all extremities. Gastrointestinal: Abdomen is soft, nontender, non-distended, no masses, no rebound, no guarding, no peritoneal signs. Musculoskeletal: Normal active ROM of all extremities, atraumatic. Neurological: Alert, appropriate, and interactive. Nonfocal neuro exam. Skin: No rashes, good turgor, no nodules on palpation. Past medical history: Cyclic vomiting, anxiety Past surgical history: T&A Family history: noncontributory Social history: Marijuana use Prior medical records reviewed including ED visit 02/02/17 for the same symptoms. DIFFERENTIAL DIAGNOSIS: The differential diagnosis for the patient's nausea and vomiting included but was not limited to gastroenteritis, gastritis, appendicitis, and medication side effect. MEDICAL DECISION MAKING: This is a 27 y/o female with a history of cyclic vomiting complaining of the same symptoms as multiple prior visits. No evidence of systemic illness. She has a benign abdomen. 10mg IV Ketamine administered for symptoms. Patient continues to have vomiting and is requesting Haldol and Ativan, which I have ordered for her. 1315: Patient feels improved and ready to go home. She will be discharged with standard cyclic vomiting instructions. Return precautions given. - Data Points Medications Given: Discontinued Medications Haloperidol Lactate (Haldol Injection) 10 mg IVP EDNOW ONE Stop: 06/02/17 11:17 Last Admin: 06/02/17 11:20 Dose: 10 mg Ketamine HCl (Ketamine) 10 mg IVP EDNOW ONE Stop: 06/02/17 10:39 Last Admin: 06/02/17 10:47 Dose: 10 mg Lorazepam (Ativan Injection) 1 mg IVP EDNOW ONE Stop: 06/02/17 11:17 Last Admin: 06/02/17 11:21 Dose: 1 mg Departure - Departure Disposition: Home, Routine, Self-Care Clinical Impression: Cyclic vomiting syndrome Qualifiers: Vomiting Intractability: non-intractable Nausea presence: with nausea Qualified Code(s): G43.A0 - Cyclical vomiting, not intractable Condition: Good Instructions: Acute Nausea and Vomiting (ED) Additional Instructions: 1. Avoid marijuana use. This is likely contributing to your symptoms. 2. Follow up with gameplay programmer for recurrent vomiting in the next 1-2 weeks. Referrals: Patient,NotPresent [Unknown] - As per Instructions Vita Little MD [Medical Doctor] - As per Instructions Report Scribed for: Kip Lynn Report Scribed by: Thalia Jack Date of Report: 06/02/17 Time of Report: 10:39
[2017-06-02 10:36] VITALS: RESP 16; TEMP 97.5
[2017-06-02] MEDS ORDERED: KETAMINE 100 MG/10 ML SYR IVP ONE (10:38)
[2017-06-02] MEDS ORDERED: LORazepam 2 MG/ML INJ IVP ONE (11:16)
[2017-06-02] MEDS ORDERED: HALOPERIDOL LACT 5 MG/ML INJ IVP ONE (11:16)
[2017-06-02 13:34] VITALS: BP 101/52; PULSE 91; O2SAT 95
== END 2017-06-02 13:28 | disposition home or self-care (01) ==
LOC: EDUNIT#
DX: G43.A0 Cyclical vomiting, in migraine, not intractable (principal); J45.909 Unspecified asthma, uncomplicated
CPT/HCPCS: 96374; J2060

== ENCOUNTER 2017-06-09 10:22 | Emergency (ER) | payer MEDICAID ==
[2017-06-09 10:40] VITALS: RESP 18
--- NOTE | 2017-06-09 10:45 | EDPHY ---
H & P Stated Complaint: N/V;some diarrhea and abd pain;hx CVS Source: Patient - Personal History LMP (Females 10-55): 8-14 Days Ago Tetanus Vaccine Date: 2011 - Medical/Surgical History Hx Asthma: Yes Hx Chronic Respiratory Disease: No Hx Diabetes: No Hx Cardiac Disease: No Hx Renal Disease: No Hx Cirrhosis: No Hx Alcoholism: No Hx HIV/AIDS: No Hx Splenectomy or Spleen Trauma: No Other PMH: PMH: anxiety, asthma, CVS (cyclic vomiting syndrome), ptsd, frequent marijuana use. PSH: T&A - Social History Smoking Status: Never smoked Constitutional: Initial Vital Signs Temperature (C) 37 C 06/09/17 10:38 Heart Rate 105 H 06/09/17 10:38 Respiratory Rate 18 06/09/17 10:38 Blood Pressure 116/81 H 06/09/17 10:38 O2 Sat (%) 98 06/09/17 10:38 Allergies/Adverse Reactions: aspirin Allergy (Unknown, Verified 06/09/17 10:36) Unknown amoxicillin Allergy (Verified 06/09/17 10:36) amoxicillin trihydrate [From Augmentin] Allergy (Verified 06/09/17 10:36) potassium clavulanate [From Augmentin] Allergy (Verified 06/09/17 10:36) contrast dye Allergy (Uncoded 01/23/17 21:19) Home Medications: Medication Instructions Recorded Hydroxyzine HCl 04/29/16 Zofran 04/29/16 Citalopram 06/21/16 Prazosin HCl 06/21/16 VYVANSE 06/21/16 Promethazine HCl [Phenergan 25mg 25 mg PO TID PRN #30 tab 10/24/16 (RX)] Medical Decision Making - Diagnostics Imaging: Discussed imaging studies w/ scallop raker Radiologist ED Course/Re-evaluation: CHIEF COMPLAINT: Cyclic vomiting. HISTORY OF PRESENT ILLNESS: The patient is a 27-year-old female, with history of cyclic vomiting, well known to this ED. This is the patient's 11th visit in the last 12 months for the same complaint. Her symptoms today are exactly the same as previous episodes. She denies hematemesis. No abdominal pain, urinary symptoms, fever, or other complaints. The patient has not followup with a environmental health manager. She smokes marijuana regularly. REVIEW OF SYSTEMS: A 10 point review of systems was performed and is negative with the exception of the elements mentioned in the history of present illness. PHYSICAL EXAM: HR, BP, O2 Sat, RR. Temp noted General Appearance: Alert, well hydrated, appropriate, and non-toxic appearing. Head: Atraumatic without scalp tenderness or obvious injury Eyes: Pupils equal, round, reactive to light and accommodation, EOMI, no trauma , no injection. Ears: Clear bilaterally, no perforation, normal landmarks Nose: Atraumatic, no rhinorrhea, clear. Throat: There is no erythema or exudates, no lesions, normal tonsils, mucus membranes moist. Neck: Supple, 2+ carotid upstroke, nontender, no lymphadenopathy. Respiratory: No retractions, no distress, no wheezes, and no accessory muscle use. Lungs are clear to auscultation bilaterally. Cardiovascular: Regular rate and rhythm, no murmurs, rubs, or gallops. Bilateral carotid, radial, dorsalis pedis, and posterior tibial pulses intact. Good capillary refill all extremities. Gastrointestinal: Abdomen is soft, nontender, non-distended, no masses, no rebound, no guarding, no peritoneal signs. Musculoskeletal: Normal active ROM of all extremities, atraumatic. Neurological: Alert, appropriate, and interactive. The patient has normal DTRs and non-focal cranial nerves, motor, sensory, and cerebellar exam. Skin: No rashes, good turgor, no nodules on palpation. Past medical history: Cyclic vomiting, Anxiety Past surgical history: T&A Family history: Noncontributory Social history: Frequent marijuana use I reviewed patient's past medical records from prior visit 06/02/17. DIFFERENTIAL DIAGNOSIS: The differential diagnosis for the patient's nausea and vomiting included but was not limited to gastroenteritis, gastritis, appendicitis, and medication side effect. MEDICAL DECISION MAKING: Patient with history of cyclic vomiting, presents with complaints of vomiting. Patient has same symptoms as multiple prior visits. No evidence of systemic illness. Patient has benign abdominal exam. Plan to have case management meet with the patient. Case management met with the patient. The patient has not had an abdominal CT since last September. She is complaining of severe abdominal pain today. Plan for CT abd/pelv. IV was established, patient received 10mg Haldol IV and 1L normal saline. Plan for lab work including BMP, CBC, Lipase, and LFT. WBC is elevated. Lab work is otherwise unremarkable. CT abd/pelvis is negative. Plan to discharge patient home. Patient received referrals from the caser up. I recommend the patient followup with a Applications Tester as she has been directed to do many times in the past. - Data Points Laboratory Results: Laboratory Results 06/09/17 12:30 06/09/17 12:30 06/09/17 06/09/17 06/09/17 12:30 12:30 12:30 WBC 20.96 10^3/uL H 10^3/uL (3.80-9.50) RBC 4.82 10^6/uL 10^6/uL (4.18-5.33) Hgb 14.7 g/dL g/dL (12.6-16.3) Hct 41.0 % % (38.0-47.0) MCV 85.1 fL fL (81.5-99.8) MCH 30.5 pg pg (27.9-34.1) MCHC 35.9 g/dL g/dL (32.4-36.7) RDW 12.2 % % (11.5-15.2) Plt Count 405 10^3/uL H 10^3/uL (150-400) MPV 10.2 fL fL (8.7-11.7) Neut % (Auto) 89.3 % H % (39.3-74.2) Lymph % (Auto) 5.5 % L % (15.0-45.0) Teller % (Auto) 4.0 % L % (4.5-13.0) Eos % (Auto) 0.1 % L % (0.6-7.6) Baso % (Auto) 0.6 % % (0.3-1.7) Nucleat RBC Rel Count 0.0 % % (0.0-0.2) Absolute Neuts (auto) 18.72 10^3/uL H 10^3/uL (1.70-6.50) Absolute Lymphs (auto) 1.15 10^3/uL 10^3/uL (1.00-3.00) Absolute Monos (auto) 0.84 10^3/uL H 10^3/uL (0.30-0.80) Absolute Eos (auto) 0.03 10^3/uL 10^3/uL (0.03-0.40) Absolute Basos (auto) 0.12 10^3/uL H 10^3/uL (0.02-0.10) Absolute Nucleated RBC 0.00 10^3/uL 10^3/uL (0-0.01) Immature Gran % 0.5 % % (0.0-1.1) Immature Gran # 0.10 10^3/uL 10^3/uL (0.00-0.10) Sodium 140 mEq/L mEq/L (134-144) Potassium 4.3 mEq/L mEq/L (3.5-5.2) Chloride 103 mEq/L mEq/L (97-110) Carbon Dioxide 18 mEq/l L mEq/l (22-31) Anion Gap 19 mEq/L H mEq/L (8-16) BUN 12 mg/dL mg/dL (7-23) Creatinine 0.7 mg/dL mg/dL (0.6-1.0) Estimated GFR > 60 Glucose 151 mg/dL H mg/dL (70-100) Calcium 10.5 mg/dL H mg/dL (8.5-10.4) Total Bilirubin 1.3 mg/dL mg/dL (0.1-1.4) Conjugated Bilirubin 0.4 mg/dL mg/dL (0.0-0.5) Unconjugated Bilirubin 0.9 mg/dL mg/dL (0.0-1.1) AST 43 IU/L IU/L (14-46) ALT 52 IU/L IU/L (9-52) Alkaline Phosphatase 80 IU/L IU/L (38-126) Total Protein 8.8 g/dL H g/dL (6.3-8.2) Albumin 5.3 g/dL H g/dL (3.5-5.0) Lipase 52 IU/L IU/L (23-300) Beta HCG, Qual NEGATIVE Medications Given: Discontinued Medications Haloperidol Lactate (Haldol Injection) 10 mg IVP EDNOW ONE Stop: 06/09/17 11:58 Last Admin: 06/09/17 12:34 Dose: 10 mg Sodium Chloride (Ns) 1,000 mls @ 0 mls/hr IV EDNOW ONE; Wide Open PRN Reason: Protocol Stop: 06/09/17 11:57 Last Admin: 06/09/17 12:34 Dose: 1,000 mls Departure - Departure Disposition: Home, Routine, Self-Care Clinical Impression: Cyclic vomiting syndrome Qualifiers: Vomiting Intractability: non-intractable Nausea presence: unspecified Qualified Code(s): G43.A0 - Cyclical vomiting, not intractable Condition: Good Instructions: Acute Nausea and Vomiting (ED) Additional Instructions: Follow up with Laura Figueroa at [facility] at the [facility] at [address] ([phone]). Also be sure to follow up with the behavioral health provider you saw on 06/04/17 through the [facility]. Referrals: Laura Figueroa, PA [Non Staff and Non MD] - As per Instructions [facility],. [Clinic] - As per Instructions Report Scribed for: Kip Lynn Report Scribed by: Lani Bhagat Date of Report: 06/09/17 Time of Report: 10:58
[2017-06-09] MEDS ORDERED: NS 1,000 ML IV ONE (11:56)
[2017-06-09] MEDS ORDERED: HALOPERIDOL LACT 5 MG/ML INJ IVP ONE (11:57)
[2017-06-09 12:44] LABS: % IMMATURE GRANULYOCYTES 0.5 % (0.0-1.1); ADD DIFF? NO; ADD MORPH? NO; ADD SCAN? NO; ATYPICAL LYMPHOCYTE FLAG 0 (0-99); FRAGMENT RBC FLAG 0 (0-99); HEMOGLOBIN 14.7 g/dL (12.6-16.3); LEFT SHIFT FLG 0 (0-99); LIPEMIA HEMOLYSIS FLAG 90 (0-99); MEAN CELL HEMOGLOBIN 30.5 pg (27.9-34.1); MEAN CELL HEMOGLOBIN CONCENTR. 35.9 g/dL (32.4-36.7); MEAN CELL VOLUME 85.1 fL (81.5-99.8); MEAN PLATELET VOLUME 10.2 fL (8.7-11.7); PLATELET CLUMPS FLAG 10 (0-99); PLATELET COUNT 405 10^3/uL (150-400); RED BLOOD CELL COUNT 4.82 10^6/uL (4.18-5.33); RED CELL DISTRIBUTION WIDTH 12.2 % (11.5-15.2)
[2017-06-09 13:07] LABS: ALANINE AMINOTRANSFERASE 52 IU/L (9-52); ALBUMIN 5.3 g/dL (3.5-5.0); ALKALINE PHOSPHATASE 80 IU/L (38-126); ANION GAP 19 mEq/L (8-16); ASPARTATE AMINOTRANSFERASE 43 IU/L (14-46); BILIRUBIN,TOTAL 1.3 mg/dL (0.1-1.4); BILIRUBIN-CONJUGATED 0.4 mg/dL (0.0-0.5); BILIRUBIN-UNCONJUGATED 0.9 mg/dL (0.0-1.1); CALCIUM 10.5 mg/dL (8.5-10.4); CARBON DIOXIDE 18 mEq/l (22-31); CHLORIDE 103 mEq/L (97-110); CREATININE 0.7 mg/dL (0.6-1.0); GLOMERULAR FILTRATION RATE > 60; GLUCOSE 151 mg/dL (70-100); POTASSIUM 4.3 mEq/L (3.5-5.2); SODIUM 140 mEq/L (134-144); TOTAL PROTEIN 8.8 g/dL (6.3-8.2)
[2017-06-09 14:23] VITALS: BP 97/46; PULSE 97; TEMP 98.1; O2SAT 95
--- NOTE | 2017-06-09 18:38 | ASMTCMCOM ---
CM Note CM Note Notes: Patient present with abdominal pain, nausea, vomiting, diarrhea. Patient was seen in the ED on 06/02/17.This is patient's 11th visit in the last 12 months for similar complaint of abdominal pain and Cyclic Vomiting Syndrome related symptoms. Patient is a high utilizer of the ED for her CVS symptoms. Went to speak with patient and she was writhing and grimacing in bed while holding her abdomen. Patient states "this doesn't feel like my CVS." Patient received an abdominal work up with labs and abd/pelvic CT scan, which was negative. Spoke with Carol at [facility] and she states patient was seen by her PCP Laura Figueroa and a behavioral health provider on 06/04/17 at their [facility] location. No specific follow-up plans or appointment had been made as of today. Patient was discharged home with recommendations to follow up at [facility] and also to follow up with a GI doctor. Patient has been referred to GI doctors in the past and it is now clear whether she has ever actually followed up with any of them. Date Signed: 06/09/2017 06:38 PM Electronically Signed By:Justine Angulo
== END 2017-06-09 14:30 | disposition home or self-care (01) ==
DX: G43.A0 Cyclical vomiting, in migraine, not intractable (principal); J45.909 Unspecified asthma, uncomplicated; E86.9 Volume depletion, unspecified
CPT/HCPCS: 96374

== ENCOUNTER 2017-07-29 09:39 | Emergency (ER) | payer MEDICAID ==
[2017-07-29] MEDS ORDERED: HALOPERIDOL LACT 5 MG/ML INJ IVP ONE (10:10)
[2017-07-29] MEDS ORDERED: HALOPERIDOL LACT 5 MG/ML INJ ONE (10:10)
--- NOTE | 2017-07-29 10:13 | EDPHY ---
H & P Smoking Status: Current some day smoker Time Seen by Provider: 07/29/17 09:47 HPI/ROS: CHIEF COMPLAINT: Vomiting HISTORY OF PRESENT ILLNESS: 27-year-old female presents to the emergency department by ambulance with multiple episodes of vomiting. The patient has a history of cyclical vomiting syndrome and was seen in the emergency department 22 times in 2015. Her last episode of cyclical vomiting syndrome where she was seen in the emergency department was on 06/09/2017. The patient tried Zofran without relief. She feels diffuse abdominal pain which is common for her when she has a flare-up of this. She states that she had a syncopal episode associated with this today. She reports no trauma. She has never had surgery. She has never seen a automobile service station attendant for this. The patient typically receives IV Haldol with good relief. No fevers or chills. No diarrhea. REVIEW OF SYSTEMS: Constitutional: No fever, no chills. Eyes: No double or blurry vision. ENT: No sore throat. Respiratory: No cough, no shortness of breath. Cardiac: No chest pain. Gastrointestinal: As above. No diarrhea Genitourinary: No dysuria. Musculoskeletal: No neck or back pain. Skin: No rashes. Neurological: No headache. (Yamileth Brizuela M) Past Medical/Surgical History: Cyclical vomiting syndrome, anxiety, asthma, PTSD, marijuana use (Gelacio,Yamileth M) Social History: (Yamileth Brizuela) Physical Exam: General Appearance: Alert, moderate distress. Anxious Eyes: Pupils equal and round. Extraocular motions are all intact. ENT: Mouth: Mucous membranes dry Respiratory: No wheezing, rhonchi, or rales, lungs are clear to auscultation. Cardiovascular: Regular rate and rhythm. Gastrointestinal: Abdomen is soft and nontender, no masses, no rebound or guarding, bowel sounds normal. No CVA tenderness bilaterally. Neurological: Alert and oriented x 3, cranial nerves II through XII grossly intact Skin: Warm and dry, no rashes. Musculoskeletal: Nontender to palpate along the cervical, thoracic or lumbar spine. Neck is supple. Extremities: Full range of motion and no peripheral edema. Psychiatric: Patient is oriented X 3, there is no agitation. (Rita Brizuelaa M) Constitutional: Initial Vital Signs Temperature (C) 36.9 C 07/29/17 09:48 Heart Rate 108 H 07/29/17 09:48 Respiratory Rate 22 H 07/29/17 09:48 Blood Pressure 129/82 H 07/29/17 09:48 O2 Sat (%) 99 07/29/17 09:48 O2 Delivery Mode Room Air O2 (L/minute) 2 Allergies/Adverse Reactions: aspirin Allergy (Unknown, Verified 06/09/17 10:36) Unknown amoxicillin Allergy (Verified 06/09/17 10:36) amoxicillin trihydrate [From Augmentin] Allergy (Verified 06/09/17 10:36) potassium clavulanate [From Augmentin] Allergy (Verified 06/09/17 10:36) contrast dye Allergy (Uncoded 01/23/17 21:19) Home Medications: Medication Instructions Recorded Hydroxyzine HCl 04/29/16 Zofran 04/29/16 Citalopram 06/21/16 Prazosin HCl 06/21/16 VYVANSE 06/21/16 Promethazine HCl [Phenergan 25mg 25 mg PO TID PRN #30 tab 10/24/16 (RX)] Medical Decision Making - Diagnostics EKG Interpretation: 12-lead EKG interpreted by me; official reading is in trace master. My interpretation is at 10:24 a.m. sinus rhythm with prolonged QT of 488 12-lead EKG interpreted by me; official reading is in trace master. My interpretation is at 11:09 a.m. sinus rhythm with rate 76 and QT 440 (Rahul Power) ED Course/Re-evaluation: 27-year-old female with known history of cyclical vomiting syndrome presents to the emergency department with multiple episodes of vomiting by ambulance. Patient will be given IV normal saline and 5 mg of IV Haldol. Patient was observed and feeling much better. She was tolerating p.o. fluids. She no longer had abdominal pain and was no longer feeling nauseous. She was calling for a ride home. I do not think imaging studies are indicated. The patient's abdomen is soft and nontender. (Yamileth Brizuela) Differential Diagnosis: Including but not limited to cyclical vomiting syndrome, dehydration, electrolyte abnormality, bowel obstruction (Yamileth Brizuela) - Data Points Medications Given: Discontinued Medications Haloperidol Lactate (Haldol Injection) 5 mg IVP EDNOW ONE Stop: 07/29/17 10:11 Last Admin: 07/29/17 10:11 Dose: 5 mg Departure - Departure Disposition: Home, Routine, Self-Care Clinical Impression: Cyclic vomiting syndrome Qualifiers: Vomiting Intractability: non-intractable Nausea presence: with nausea Qualified Code(s): G43.A0 - Cyclical vomiting, not intractable Condition: Good Instructions: Acute Nausea and Vomiting (ED) Additional Instructions: Follow up with your PCP, Laura Figueroa, at [facility] ([phone]) as soon as possible. Also call the on-call [place] Utility Worker, Dr Pieter Kay at [facility] ([phone]) as soon as possible. Referrals: Pieter Kay MD [Medical Doctor] - As per Instructions
--- NOTE | 2017-07-29 10:26 | CPEKG ---
Heart Rate: 64 RR Interval: 938 P-R Interval: 148 QRSD Interval: 88 QT Interval: 488 QTC Interval: 504 P [place]: 69 QRS [place]: 74 T Wave [place]: 67 EKG Severity - ABNORMAL ECG - EKG Impression: SINUS RHYTHM EKG Impression: PROLONGED QT INTERVAL Electronically Signed By: Rahul Power 29-Jul-2017 15:00:17
--- NOTE | 2017-07-29 10:26 | CPEKG ---
Heart Rate: 64 RR Interval: 938 P-R Interval: 148 QRSD Interval: 88 QT Interval: 488 QTC Interval: 504 P [place]: 69 QRS [place]: 74 T Wave [place]: 67 EKG Severity - ABNORMAL ECG - EKG Impression: SINUS RHYTHM EKG Impression: PROLONGED QT INTERVAL Electronically Signed By: Rahul Power 29-Jul-2017 15:00:17
[2017-07-29 10:41] VITALS: RESP 16
--- NOTE | 2017-07-29 11:10 | CPEKG ---
Heart Rate: 76 RR Interval: 789 P-R Interval: 136 QRSD Interval: 86 QT Interval: 440 QTC Interval: 495 P [place]: 69 QRS [place]: 75 T Wave [place]: 63 EKG Severity - BORDERLINE ECG - EKG Impression: SINUS RHYTHM EKG Impression: BORDERLINE PROLONGED QT INTERVAL Electronically Signed By: Rahul Power 29-Jul-2017 15:00:12
--- NOTE | 2017-07-29 11:10 | CPEKG ---
Heart Rate: 76 RR Interval: 789 P-R Interval: 136 QRSD Interval: 86 QT Interval: 440 QTC Interval: 495 P [place]: 69 QRS [place]: 75 T Wave [place]: 63 EKG Severity - BORDERLINE ECG - EKG Impression: SINUS RHYTHM EKG Impression: BORDERLINE PROLONGED QT INTERVAL Electronically Signed By: Rahul Power 29-Jul-2017 15:00:12
[2017-07-29 11:56] VITALS: PULSE 95
[2017-07-29 12:20] VITALS: BP 135/70; TEMP 97.7; O2SAT 99
--- NOTE | 2017-07-29 14:55 | ASMTCMCOM ---
CM Note CM Note Notes: Spoke with patient extensively about her frequent ED visits for cyclic vomiting and abdominal pain. Patient states "I've been doing well, I honestly don't know why I'm having this flare-up." Patient reports she takes her medications and they help prevent CVS. Patient reports she still smokes marijuana occasionally. Patient states she hasn't seen any of the GI specialists she was referred to the last couple of ED visits (06/09,06/02/17) and she said because she assumes they were located in [place] and she "doesn't have time to go to [place]." Patient was informed that she has been referred to [facility] ([phone]) and one of their locations is across from the ED entrance. Patient says she would be willing to call and make an appointment with them. Spoke with staff at [facility] and patient's last appointment was mid-2015 and she no-showed. Patient had multiple other appts prior to 2015 where she no-showed or canceled the appt. This CM offered to call and make appts for her at [facility] and [facility] but patient declined, saying she doesn't know her schedule. Spoke with staff and they are able to get patient an appt to see Dr Smith on 07/31/17 at 2pm. Attempted to call patient at her updated #[phone] and her voice mail is not set up yet. Patient's PCP is Laura Figueroa at [facility]. Spoke with Nu at [facility] and she said pt's last visit was 06/04/17, in which she also saw a behavioral health RN during that visit. Patient states she will call to make a follow-up appointment with Laura Figueroa as soon as possible. This CM asked Nu to have patient reviewed for possible complex care team management. Date Signed: 07/29/2017 02:54 PM Electronically Signed By:Justine Angulo RN
--- NOTE | 2017-07-29 14:55 | ASMTCMCOM ---
CM Note CM Note Notes: Spoke with patient extensively about her frequent ED visits for cyclic vomiting and abdominal pain. Patient states "I've been doing well, I honestly don't know why I'm having this flare-up." Patient reports she takes her medications and they help prevent CVS. Patient reports she still smokes marijuana occasionally. Patient states she hasn't seen any of the GI specialists she was referred to the last couple of ED visits (06/09,06/02/17) and she said because she assumes they were located in [place] and she "doesn't have time to go to [place]." Patient was informed that she has been referred to [facility] ([phone]) and one of their locations is across from the ED entrance. Patient says she would be willing to call and make an appointment with them. Spoke with staff at [facility] and patient's last appointment was mid-2015 and she no-showed. Patient had multiple other appts prior to 2015 where she no-showed or canceled the appt. This CM offered to call and make appts for her at [facility] and [facility] but patient declined, saying she doesn't know her schedule. Spoke with staff and they are able to get patient an appt to see Dr Smith on 07/31/17 at 2pm. Attempted to call patient at her updated #[phone] and her voice mail is not set up yet. Patient's PCP is Laura Figueroa at [facility]. Spoke with Nu at [facility] and she said pt's last visit was 06/04/17, in which she also saw a behavioral health RN during that visit. Patient states she will call to make a follow-up appointment with Laura Figueroa as soon as possible. This CM asked Nu to have patient reviewed for possible complex care team management. Date Signed: 07/29/2017 02:54 PM Electronically Signed By:Justine Angulo RN
--- NOTE | 2017-07-29 14:55 | ASMTCMCOM ---
CM Note CM Note Notes: Spoke with patient extensively about her frequent ED visits for cyclic vomiting and abdominal pain. Patient states "I've been doing well, I honestly don't know why I'm having this flare-up." Patient reports she takes her medications and they help prevent CVS. Patient reports she still smokes marijuana occasionally. Patient states she hasn't seen any of the GI specialists she was referred to the last couple of ED visits (06/09,06/02/17) and she said because she assumes they were located in [place] and she "doesn't have time to go to [place]." Patient was informed that she has been referred to [facility] ([phone]) and one of their locations is across from the ED entrance. Patient says she would be willing to call and make an appointment with them. Spoke with staff at [facility] and patient's last appointment was mid-2015 and she no-showed. Patient had multiple other appts prior to 2015 where she no-showed or canceled the appt. This CM offered to call and make appts for her at [facility] and [facility] but patient declined, saying she doesn't know her schedule. Spoke with staff and they are able to get patient an appt to see Dr Smith on 07/31/17 at 2pm. Attempted to call patient at her updated #[phone] and her voice mail is not set up yet. Patient's PCP is Laura Figueroa at [facility]. Spoke with Nu at [facility] and she said pt's last visit was 06/04/17, in which she also saw a behavioral health RN during that visit. Patient states she will call to make a follow-up appointment with Laura Figueroa as soon as possible. This CM asked Nu to have patient reviewed for possible complex care team management. Date Signed: 07/29/2017 02:54 PM Electronically Signed By:Justine Angulo RN
--- NOTE | 2017-07-29 14:58 | ASDISCHSUM ---
Discharge Information Plan Status:Home with No Needs Medically Cleared to Leave: Discharge Date:07/29/2017 12:20 PM CM D/C Disposition:Home, Routine, Self-Care ADT D/C Disposition:Home, Routine, Self-Care Projected Discharge Date:07/29/2017 12:20 PM Transportation at D/C:Taxicab Discharge Delay Reason: Follow-Up Date:07/29/2017 12:20 PM Discharge Slot: Final Diagnosis: Placement Information Patient Contact Information Contact Name:RAMEZYSAVAGE Relationship: Address:[address] Work Phone: [place] Alternate Phone: [facility]/Zip Code:[place] [address] Email: Financial Information Financial Class: Primary Plan Desc:MEDICAID HEALTH FIRST BUSINESS OPERATIONS MANAGER Primary Plan Number:[id number] Secondary Plan Desc: Secondary Plan Number: Assessment Information LACE LACE Emergency dept visits in Answers: 4+ last 6 months Score: 4 Date Signed: 07/29/2017 01:39 PM Electronically Signed By:Justine Angulo RN [facility] CM Progress Note CM Note CM Note Notes: Spoke with patient extensively about her frequent ED visits for cyclic vomiting and abdominal pain. Patient states "I've been doing well, I honestly don't know why I'm having this flare-up." Patient reports she takes her medications and they help prevent CVS. Patient reports she still smokes marijuana occasionally. Patient states she hasn't seen any of the GI specialists she was referred to the last couple of ED visits (06/09,06/02/17) and she said because she assumes they were located in [place] and she "doesn't have time to go to [place]." Patient was informed that she has been referred to [facility] ([phone]) and one of their locations is across from the ED entrance. Patient says she would be willing to call and make an appointment with them. Spoke with staff at [facility] and patient's last appointment was mid-2015 and she no-showed. Patient had multiple other appts prior to 2015 where she no-showed or canceled the appt. This CM offered to call and make appts for her at [facility] and [facility] but patient declined, saying she doesn't know her schedule. Spoke with staff and they are able to get patient an appt to see Dr Smith on 07/31/17 at 2pm. Attempted to call patient at her updated #[phone] and her voice mail is not set up yet. Patient's PCP is Laura Figueroa at [facility]. Spoke with Nu at [facility] and she said pt's last visit was 06/04/17, in which she also saw a behavioral health RN during that visit. Patient states she will call to make a follow-up appointment with Laura Figueroa as soon as possible. This CM asked Nu to have patient reviewed for possible complex care team management. Date Signed: 07/29/2017 02:54 PM Electronically Signed By:Justine Angulo RN Intervention Information
--- NOTE | 2017-07-29 14:58 | ASDISCHSUM ---
Discharge Information Plan Status:Home with No Needs Medically Cleared to Leave: Discharge Date:07/29/2017 12:20 PM CM D/C Disposition:Home, Routine, Self-Care ADT D/C Disposition:Home, Routine, Self-Care Projected Discharge Date:07/29/2017 12:20 PM Transportation at D/C:Taxicab Discharge Delay Reason: Follow-Up Date:07/29/2017 12:20 PM Discharge Slot: Final Diagnosis: Placement Information Patient Contact Information Contact Name:RAMEZYSAVAGE Relationship: Address:[address] Work Phone: [place] Alternate Phone: [facility]/Zip Code:[place] [address] Email: Financial Information Financial Class: Primary Plan Desc:MEDICAID HEALTH FIRST MARKETING COMMUNICATIONS SPECIALIST Primary Plan Number:[id number] Secondary Plan Desc: Secondary Plan Number: Assessment Information LACE LACE Emergency dept visits in Answers: 4+ last 6 months Score: 4 Date Signed: 07/29/2017 01:39 PM Electronically Signed By:Justine Angulo RN [facility] CM Progress Note CM Note CM Note Notes: Spoke with patient extensively about her frequent ED visits for cyclic vomiting and abdominal pain. Patient states "I've been doing well, I honestly don't know why I'm having this flare-up." Patient reports she takes her medications and they help prevent CVS. Patient reports she still smokes marijuana occasionally. Patient states she hasn't seen any of the GI specialists she was referred to the last couple of ED visits (06/09,06/02/17) and she said because she assumes they were located in [place] and she "doesn't have time to go to [place]." Patient was informed that she has been referred to [facility] ([phone]) and one of their locations is across from the ED entrance. Patient says she would be willing to call and make an appointment with them. Spoke with staff at [facility] and patient's last appointment was mid-2015 and she no-showed. Patient had multiple other appts prior to 2015 where she no-showed or canceled the appt. This CM offered to call and make appts for her at [facility] and [facility] but patient declined, saying she doesn't know her schedule. Spoke with staff and they are able to get patient an appt to see Dr Smith on 07/31/17 at 2pm. Attempted to call patient at her updated #[phone] and her voice mail is not set up yet. Patient's PCP is Laura Figueroa at [facility]. Spoke with Nu at [facility] and she said pt's last visit was 06/04/17, in which she also saw a behavioral health RN during that visit. Patient states she will call to make a follow-up appointment with Laura Figueroa as soon as possible. This CM asked Nu to have patient reviewed for possible complex care team management. Date Signed: 07/29/2017 02:54 PM Electronically Signed By:Justine Angulo RN Intervention Information
--- NOTE | 2017-07-29 14:58 | ASDISCHSUM ---
Discharge Information Plan Status:Home with No Needs Medically Cleared to Leave: Discharge Date:07/29/2017 12:20 PM CM D/C Disposition:Home, Routine, Self-Care ADT D/C Disposition:Home, Routine, Self-Care Projected Discharge Date:07/29/2017 12:20 PM Transportation at D/C:Taxicab Discharge Delay Reason: Follow-Up Date:07/29/2017 12:20 PM Discharge Slot: Final Diagnosis: Placement Information Patient Contact Information Contact Name:RAMEZYSAVAGE Relationship: Address:[address] Work Phone: [place] Alternate Phone: [facility]/Zip Code:[place] [address] Email: Financial Information Financial Class: Primary Plan Desc:MEDICAID HEALTH FIRST TRAILER PARK MANAGER Primary Plan Number:[id number] Secondary Plan Desc: Secondary Plan Number: Assessment Information LACE LACE Emergency dept visits in Answers: 4+ last 6 months Score: 4 Date Signed: 07/29/2017 01:39 PM Electronically Signed By:Justine Angulo RN [facility] CM Progress Note CM Note CM Note Notes: Spoke with patient extensively about her frequent ED visits for cyclic vomiting and abdominal pain. Patient states "I've been doing well, I honestly don't know why I'm having this flare-up." Patient reports she takes her medications and they help prevent CVS. Patient reports she still smokes marijuana occasionally. Patient states she hasn't seen any of the GI specialists she was referred to the last couple of ED visits (06/09,06/02/17) and she said because she assumes they were located in [place] and she "doesn't have time to go to [place]." Patient was informed that she has been referred to [facility] ([phone]) and one of their locations is across from the ED entrance. Patient says she would be willing to call and make an appointment with them. Spoke with staff at [facility] and patient's last appointment was mid-2015 and she no-showed. Patient had multiple other appts prior to 2015 where she no-showed or canceled the appt. This CM offered to call and make appts for her at [facility] and [facility] but patient declined, saying she doesn't know her schedule. Spoke with staff and they are able to get patient an appt to see Dr Smith on 07/31/17 at 2pm. Attempted to call patient at her updated #[phone] and her voice mail is not set up yet. Patient's PCP is Laura Figueroa at [facility]. Spoke with Nu at [facility] and she said pt's last visit was 06/04/17, in which she also saw a behavioral health RN during that visit. Patient states she will call to make a follow-up appointment with Laura Figueroa as soon as possible. This CM asked Nu to have patient reviewed for possible complex care team management. Date Signed: 07/29/2017 02:54 PM Electronically Signed By:Justine Angulo RN Intervention Information
--- NOTE | 2017-07-29 15:02 | ASMTCMCOM ---
CM Note CM Note Notes: Spoke with patient ([phone]) and she said she will call [facility] to either confirm the 07/31/[address] Smith or schedule a different appointment. Patient also will call [facility] to schedule a follow-up appt with Laura Figueroa. Date Signed: 07/29/2017 03:01 PM Electronically Signed By:Justine Angulo RN
--- NOTE | 2017-07-29 15:02 | ASMTCMCOM ---
CM Note CM Note Notes: Spoke with patient ([phone]) and she said she will call [facility] to either confirm the 07/31/[address] Smith or schedule a different appointment. Patient also will call [facility] to schedule a follow-up appt with Laura iFgueroa. Date Signed: 07/29/2017 03:01 PM Electronically Signed By:Justine Angulo RN
--- NOTE | 2017-07-29 15:02 | ASMTCMCOM ---
CM Note CM Note Notes: Spoke with patient ([phone]) and she said she will call [facility] to either confirm the 07/31/[address] Smith or schedule a different appointment. Patient also will call [facility] to schedule a follow-up appt with Laura Figueroa. Date Signed: 07/29/2017 03:01 PM Electronically Signed By:Justine Angulo RN
== END 2017-07-29 12:20 | disposition home or self-care (01) ==
LOC: EDUNIT#
DX: G43.A0 Cyclical vomiting, in migraine, not intractable (principal); J45.909 Unspecified asthma, uncomplicated; F17.200 Nicotine dependence, unspecified, uncomplicated
CPT/HCPCS: 96374

== ENCOUNTER 2017-09-01 14:52 | Emergency (ER) | payer MEDICAID ==
--- NOTE | 2017-09-01 14:56 | EDPHY ---
H & P Time Seen by Provider: 09/01/17 14:52 HPI/ROS: Chief complaint. Vomiting HPI. 27-year-old female with history of cyclic vomiting here by EMS with vomiting that began at 10:00 a.m.. She also has generalized abdominal pain. She has had this multiple times previously and feels that Ativan and Haldol are good therapy for her. Denies any precipitating factor for today. No diarrhea. She does tell me that stomach flu is been going around. She was last seen for similar symptoms July 29. Patient received Zofran per EMS prior to arrival ROS Constitutional. no fever/chills, no weakness Eyes. no problems with vision ENT. no sore throat, no nasal drainage Cardiovascular. no chest pain Respiratory. no shortness of breath, no cough Abdominal. Abdominal pain with nausea and vomiting . no problems urinating MS. no calf pain/swelling, no neck/back pain, no joint pain Skin. no rash Lymph. no swollen glands Neuro. no headache, no dizziness, no difficulty walking or with speech Past Medical/Surgical History: Cyclic vomiting syndrome, anxiety, asthma, PTSD, frequent marijuana use. Previous tonsillectomy Social History: Single, daily smoker, no alcohol Smoking Status: Current some day smoker Physical Exam: General Appearance: Alert well-developed female moderate distress vital signs significant for heart rate 102 Eyes: Pupils equal and round no pallor or injection. ENT, Mouth: Mucous membranes are moist. Respiratory: There are no retractions, lungs are clear to auscultation. Cardiovascular: Regular rate and rhythm. Gastrointestinal: Abdomen is soft with periumbilical abdominal pain. No masses. Normal bowel sounds Neurological: Awake and alert, sensory and motor exams grossly normal. Skin: Warm and dry, no rashes. Musculoskeletal: Neck is supple nontender. Extremities symmetrical, full range of motion. Psychiatric: Patient is oriented X 3, there is no agitation. Constitutional: Initial Vital Signs Temperature (C) 36.5 C 09/01/17 14:57 Heart Rate 102 H 09/01/17 14:57 Respiratory Rate 20 09/01/17 14:57 Blood Pressure 154/98 H 09/01/17 14:57 O2 Sat (%) 98 09/01/17 14:57 O2 Delivery Mode Room Air O2 (L/minute) 2 Allergies/Adverse Reactions: aspirin Allergy (Unknown, Verified 06/09/17 10:36) Unknown amoxicillin Allergy (Verified 06/09/17 10:36) amoxicillin trihydrate [From Augmentin] Allergy (Verified 06/09/17 10:36) potassium clavulanate [From Augmentin] Allergy (Verified 06/09/17 10:36) contrast dye Allergy (Uncoded 01/23/17 21:19) Home Medications: Medication Instructions Recorded Hydroxyzine HCl 04/29/16 Zofran 04/29/16 Citalopram 06/21/16 Prazosin HCl 06/21/16 VYVANSE 06/21/16 Promethazine HCl [Phenergan 25mg 25 mg PO TID PRN #30 tab 10/24/16 (RX)] Promethazine HCl [Phenergan 25mg 25 mg PO Q4-6PRN PRN #10 tab 09/01/17 (*)] Medical Decision Making Procedures: IV normal saline. Ativan and Haldol IV ED Course/Re-evaluation: Re-evaluation at 5:20 p.m.. Patient is stable. No vomiting. Tells me she is feeling better. Re-evaluation again at 6:05 p.m.. She has taken oral fluids without further vomiting. She is somewhat drowsy from medication but says she is feeling better. She also tells me she has someone to come here for ride home. Patient and I discussed laboratory evaluation, treatment plan including criteria for return importance of follow-up and further evaluation. She expresses understanding and agreement Differential Diagnosis: This is apparently cyclic vomiting syndrome. I considered , food poisoning, pancreatitis as well. No evidence for significant dehydration. - Data Points Laboratory Results: Laboratory Results 09/01/17 14:52 09/01/17 14:52 09/01/17 09/01/17 09/01/17 14:52 14:52 14:52 WBC 17.65 10^3/uL H 10^3/uL (3.80-9.50) RBC 4.62 10^6/uL 10^6/uL (4.18-5.33) Hgb 14.5 g/dL g/dL (12.6-16.3) Hct 40.4 % % (38.0-47.0) MCV 87.4 fL fL (81.5-99.8) MCH 31.4 pg pg (27.9-34.1) MCHC 35.9 g/dL g/dL (32.4-36.7) RDW 12.1 % % (11.5-15.2) Plt Count 357 10^3/uL 10^3/uL (150-400) MPV 10.3 fL fL (8.7-11.7) Neut % (Auto) 91.6 % H % (39.3-74.2) Lymph % (Auto) 4.8 % L % (15.0-45.0) [place] % (Auto) 2.5 % L % (4.5-13.0) Eos % (Auto) 0.0 % L % (0.6-7.6) Baso % (Auto) 0.6 % % (0.3-1.7) Nucleat RBC Rel Count 0.0 % % (0.0-0.2) Absolute Neuts (auto) 16.18 10^3/uL H 10^3/uL (1.70-6.50) Absolute Lymphs (auto) 0.84 10^3/uL L 10^3/uL (1.00-3.00) Absolute Monos (auto) 0.45 10^3/uL 10^3/uL (0.30-0.80) Absolute Eos (auto) 0.00 10^3/uL L 10^3/uL (0.03-0.40) Absolute Basos (auto) 0.10 10^3/uL 10^3/uL (0.02-0.10) Absolute Nucleated RBC 0.00 10^3/uL 10^3/uL (0-0.01) Immature Gran % 0.5 % % (0.0-1.1) Immature Gran # 0.08 10^3/uL 10^3/uL (0.00-0.10) Sodium 148 mEq/L H mEq/L (134-144) Potassium 4.8 mEq/L mEq/L (3.5-5.2) Chloride 104 mEq/L mEq/L (97-110) Carbon Dioxide 23 mEq/l mEq/l (22-31) Anion Gap 21 mEq/L H mEq/L (8-16) BUN 10 mg/dL mg/dL (7-23) Creatinine 0.7 mg/dL mg/dL (0.6-1.0) Estimated GFR > 60 Glucose 149 mg/dL H mg/dL (70-100) Calcium 10.4 mg/dL mg/dL (8.5-10.4) Lipase 47 IU/L IU/L (23-300) Beta HCG, Qual NEGATIVE Medications Given: Discontinued Medications Haloperidol Lactate (Haldol Injection) 5 mg IVP EDNOW ONE Stop: 09/01/17 14:58 Last Admin: 09/01/17 15:11 Dose: 5 mg Sodium Chloride (Ns) 1,000 mls @ 0 mls/hr IV EDNOW ONE; Wide Open PRN Reason: Protocol Stop: 09/01/17 15:12 Last Admin: 09/01/17 15:14 Dose: 1,000 mls Sodium Chloride (Ns) 1,000 mls @ 0 mls/hr IV EDNOW ONE; Wide Open PRN Reason: Protocol Stop: 09/01/17 15:12 Last Admin: 09/01/17 15:42 Dose: 1,000 mls Lorazepam (Ativan Injection) 1 mg IVP EDNOW ONE Stop: 09/01/17 14:58 Last Admin: 09/01/17 15:11 Dose: 1 mg Departure - Departure Disposition: Home, Routine, Self-Care Clinical Impression: Cyclic vomiting syndrome Qualifiers: Vomiting Intractability: non-intractable Nausea presence: with nausea Qualified Code(s): G43.A0 - Cyclical vomiting, not intractable Condition: Good Instructions: Acute Nausea and Vomiting (ED) Additional Instructions: Frequent, small sips fluids. Gradual diet advancement. Phenergan as needed for nausea and vomiting. Return for worsening symptoms. Recheck in 1 day if not improved. Follow up with your regular physician or Gastroenterology for further evaluation. Referrals: Unknown,Unknown [Primary Care Provider] - As per Instructions Darshan Jay MD [Medical Doctor] - As per Instructions Prescriptions: Promethazine HCl [Phenergan 25mg (*)] 25 mg PO Q4-6PRN PRN #10 tab PRN Reason: Nausea/Vomiting, Use 1st
[2017-09-01] MEDS ORDERED: LORazepam 2 MG/ML INJ IVP ONE (14:57)
[2017-09-01] MEDS ORDERED: HALOPERIDOL LACT 5 MG/ML INJ IVP ONE (14:57)
[2017-09-01] MEDS ORDERED: NS 1,000 ML IV ONE ×2 (15:11)
[2017-09-01 15:19] LABS: % IMMATURE GRANULYOCYTES 0.5 % (0.0-1.1); ABSOLUTE IMMATURE GRANULOCYTES 0.08 10^3/uL (0.00-0.10); ADD DIFF? NO; ADD MORPH? NO; ADD SCAN? NO; ATYPICAL LYMPHOCYTE FLAG 0 (0-99); FRAGMENT RBC FLAG 0 (0-99); HEMATOCRIT 40.4 % (38.0-47.0); HEMOGLOBIN 14.5 g/dL (12.6-16.3); LEFT SHIFT FLG 0 (0-99); LIPEMIA HEMOLYSIS FLAG 90 (0-99); MEAN CELL HEMOGLOBIN 31.4 pg (27.9-34.1); MEAN CELL HEMOGLOBIN CONCENTR. 35.9 g/dL (32.4-36.7); MEAN CELL VOLUME 87.4 fL (81.5-99.8); MEAN PLATELET VOLUME 10.3 fL (8.7-11.7); PLATELET CLUMPS FLAG 10 (0-99); PLATELET COUNT 357 10^3/uL (150-400); RED BLOOD CELL COUNT 4.62 10^6/uL (4.18-5.33); RED CELL DISTRIBUTION WIDTH 12.1 % (11.5-15.2)
[2017-09-01 15:27] LABS: ANION GAP 21 mEq/L (8-16); CALCIUM 10.4 mg/dL (8.5-10.4); CARBON DIOXIDE 23 mEq/l (22-31); CHLORIDE 104 mEq/L (97-110); CREATININE 0.7 mg/dL (0.6-1.0); GLOMERULAR FILTRATION RATE > 60; GLUCOSE 149 mg/dL (70-100); POTASSIUM 4.8 mEq/L (3.5-5.2); SODIUM 148 mEq/L (134-144)
[2017-09-01 18:22] VITALS: BP 107/71; PULSE 92; RESP 16; TEMP 98.2; O2SAT 100
== END 2017-09-01 18:26 | disposition home or self-care (01) ==
LOC: EDUNIT#
DX: G43.A0 Cyclical vomiting, in migraine, not intractable (principal); F17.200 Nicotine dependence, unspecified, uncomplicated; E86.9 Volume depletion, unspecified; J45.909 Unspecified asthma, uncomplicated
CPT/HCPCS: 96374

== ENCOUNTER 2017-10-11 12:59 | Emergency (ER) | payer MEDICAID ==
[2017-10-11 13:05] VITALS: BP 92/61; PULSE 105; RESP 16; TEMP 98.6; O2SAT 97
--- NOTE | 2017-10-11 13:17 | EDPHY ---
H & P Stated Complaint: mid back pain x wks worse today -no trauma-due for PT tues Time Seen by Provider: 10/11/17 13:17 - Personal History LMP (Females 10-55): 1-7 Days Ago Current Tetanus/Diphtheria Vaccine: Unsure Current Tetanus Diphtheria and Acellular Pertussis (TDAP): Unsure Tetanus Vaccine Date: 2011 - Medical/Surgical History Hx Asthma: Yes Hx Chronic Respiratory Disease: No Hx Diabetes: No Hx Cardiac Disease: No Hx Renal Disease: No Hx Cirrhosis: No Hx Alcoholism: No Hx HIV/AIDS: No Hx Splenectomy or Spleen Trauma: No Other PMH: PMH: anxiety, asthma, CVS (cyclic vomiting syndrome), ptsd, frequent marijuana use. PSH: T&A - Social History Smoking Status: Current some day smoker Constitutional: Initial Vital Signs Temperature (C) 37.0 C 10/11/17 13:03 Heart Rate 105 H 10/11/17 13:03 Respiratory Rate 16 10/11/17 13:03 Blood Pressure 92/61 L 10/11/17 13:03 O2 Sat (%) 97 10/11/17 13:03 O2 Delivery Mode Room Air Allergies/Adverse Reactions: aspirin Allergy (Unknown, Verified 06/09/17 10:36) Unknown amoxicillin Allergy (Verified 06/09/17 10:36) amoxicillin trihydrate [From Augmentin] Allergy (Verified 06/09/17 10:36) potassium clavulanate [From Augmentin] Allergy (Verified 06/09/17 10:36) contrast dye Allergy (Uncoded 01/23/17 21:19) Home Medications: Medication Instructions Recorded Hydroxyzine HCl 04/29/16 Zofran 04/29/16 Citalopram 06/21/16 Prazosin HCl 06/21/16 VYVANSE 06/21/16 Promethazine HCl [Phenergan 25mg 25 mg PO TID PRN #30 tab 10/24/16 (RX)] Promethazine HCl [Phenergan 25mg 25 mg PO Q4-6PRN PRN #10 tab 09/01/17 (*)] HYDROcodone/APAP 10/325 [[place] 1 - 2 each PO Q4-6PRN PRN #20 tab 10/11/17 10/325] Lidocaine 5% [Lidoderm 5% Patch 2 ea TD DAILY #10 patch 10/11/17 (*)] methylPREDNISolone [Medrol Dose 1 each PO AD #1 ea 10/11/17 Jermaine] Medical Decision Making ED Course/Re-evaluation: CHIEF COMPLAINT: Back pain HISTORY OF PRESENT ILLNESS: The patient is a 27 y/o female with a history of cyclic vomiting complaining of low back pain for the last couple weeks. She developed lower back pain during an episode of cyclic vomiting a few weeks ago. Her pain is localized to her lumbar paraspinous region and is worse with movement and deep inspiration. She saw her PCP for this recently and has PT arranged beginning next week. She has not seen a neurosurgeon or pulp drier for this nor had any imaging performed. She denies incontinence, weakness, paresthesias, fever, or other complaints. No recent illness or trauma. She took 1 pill of diazepam this morning with no improvement in symptoms. REVIEW OF SYSTEMS: A 10 point review of systems was performed and is negative with the exception of the elements mentioned in the history of present illness. PHYSICAL EXAM: HR, BP, O2 Sat, RR. Temp noted General Appearance: Alert, well hydrated, appropriate, and appears uncomfortable. Head: Atraumatic without scalp tenderness or obvious injury Eyes: Pupils equal, round, reactive to light and accommodation, EOMI, no trauma , no injection. Nose: Atraumatic, no rhinorrhea, clear. Throat: Mucus membranes moist. Neck: Supple, nontender, no lymphadenopathy. Respiratory: No retractions, no distress, no wheezes, and no accessory muscle use. Lungs are clear to auscultation bilaterally. Cardiovascular: Regular rate and rhythm, no murmurs, rubs, or gallops. Good capillary refill all extremities. Gastrointestinal: Abdomen is soft, nontender, non-distended, no masses, no rebound, no guarding, no peritoneal signs. Musculoskeletal: Normal active ROM of all extremities, atraumatic. Lumbar paraspinous tenderness. Neurological: Alert, appropriate, and interactive. The patient has non-focal cranial nerves, motor, sensory, and cerebellar exam. Skin: No rashes, good turgor, no nodules on palpation. Past medical history: Cyclic vomiting, PTSD, anxiety Past surgical history: Tonsillectomy Family history: Noncontributory Social history: Employed. Lives in [place]. Heavy marijuana use. DIFFERENTIAL DIAGNOSIS: The differential diagnosis for the patient's back pain included but was not limited to musculoskeletal pain, epidural abscess, herniated disk, spinal fracture, and intra-abdominal causes including urinary system. MEDICAL DECISION MAKING: This is a 27 y/o female with a history of cyclic vomiting syndrome who presents with a 3-week history of back pain that began during a vomiting episode. She has been evaluated by her PCP for this already and has PT scheduled beginning this week. She does not have good options for pain control. There is lumbar paraspinous tenderness on exam. She has a completely normal neurovascularly exam and I do not have a strong indication for emergent imaging at this time. She will be discharged with script for [place] and Medrol with standard OTC back pain care and follow up instructions. She's been referred to neurosurgery and physiatry as needed in addition to her upcoming PT appointments. Return precautions discussed. She agrees with this plan. Departure - Departure Disposition: Home, Routine, Self-Care Clinical Impression: Back pain Qualifiers: Back pain location: low back pain Chronicity: unspecified Back pain laterality : bilateral Sciatica presence: without sciatica Qualified Code(s): M54.5 - Low back pain Condition: Good Instructions: Low Back Strain (ED) Additional Instructions: 1. Take Medrol as prescribed. Be sure to complete entire prescription. 2. Take 600mg ibuprofen every 6-8 hours for pain and inflammation for the next few days. 3. Use [place] as prescribed when needed for severe pain. This medication can make you drowsy. Do not drive or operate machinery while using it. 4. Apply lidocaine patches to sore areas as directed. 5. Keep your PT appointments as scheduled. 6. Follow up with back specialists you have been referred to in the next week. Referrals: Laura Figueroa PA [Primary Care Provider] - As per Instructions Bayron Almonte MD [Medical Doctor] - As per Instructions [facility] [Outside] - As per Instructions Prescriptions: HYDROcodone/APAP 10/325 [[place] 10/325] 1 - 2 each PO Q4-6PRN PRN #20 tab PRN Reason: Pain, Moderate Lidocaine 5% [Lidoderm 5% Patch (*)] 2 ea TD DAILY #10 patch methylPREDNISolone [Medrol Dose Jermaine] 1 each PO AD #1 ea Report Scribed for: Kip Lynn Report Scribed by: Thalia L Marcie Date of Report: 10/11/17 Time of Report: 13:55
== END 2017-10-11 13:55 | disposition home or self-care (01) ==
DX: M54.5 Low back pain (principal); J45.909 Unspecified asthma, uncomplicated; F17.200 Nicotine dependence, unspecified, uncomplicated

== ENCOUNTER 2017-11-01 01:35 | Emergency (ER) | payer MEDICAID ==
[2017-11-01] MEDS ORDERED: NS 1,000 ML IV ONE ×2 (01:48→03:21)
[2017-11-01] MEDS ORDERED: HALOPERIDOL LACT 5 MG/ML INJ IVP ONE (01:55)
--- NOTE | 2017-11-01 01:55 | EDPHY ---
H & P Stated Complaint: cyclic vomiting HPI/ROS: HPI CHIEF COMPLAINT: Nausea vomiting history of cyclic vomiting syndrome HISTORY OF PRESENT ILLNESS: Patient is a 27-year-old female history PTSD and cyclic vomiting syndrome. She states she is having another 1 of her "episodes " patient states that she feels like she is going to vomit has not actually vomited but feels very nauseous and is having reflux. Denies chest pain or shortness of breath denies fever. Denies diarrhea. Denies abdominal pain. Symptoms started 20 min prior to arrival. Past Medical History: Cyclic vomiting syndrome Past Surgical History: no surgical history Social History: Denies drugs alcohol tobacco products. Family History: Noncontributory ROS REVIEW OF SYSTEMS: A comprehensive 10 point review of systems is otherwise negative aside from elements mentioned in the history of present illness. Exam Constitutional appears well nontoxic no acute distress, triage nursing summary reviewed, vital signs reviewed, awake/alert. Eyes normal conjunctivae and sclera, EOMI, PERRLA. HENT normal inspection, atraumatic, moist mucus membranes, no epistaxis, neck supple/ no meningismus, no raccoon eyes. Respiratory clear to auscultation bilaterally, normal breath sounds, no respiratory distress, no wheezing. Cardiovascular rate normal, regular rhythm, no murmur, no edema, distal pulses normal. Gastrointestinal soft, non-tender, no rebound, no guarding, normal bowel sounds, no distension, no pulsatile mass. Genitourinary no CVA tenderness. Musculoskeletal no midline vertebral tenderness, full range of motion, no calf swelling, no tenderness of extremities, no meningismus, good pulses, neurovascularly intact. Skin pink, warm, & dry, no rash, skin atraumatic. Neurologic awake, alert and oriented x 3, AAOx3, moves all 4 extremities equally, motor intact, sensory intact, CN II-XII intact, normal cerebellar, normal vision, normal speech. Psychiatric normal mood/affect. Heme/Lymph/Immune no lymphadenopathy. Differential Diagnosis: Includes but is not limited to in a particular order acute anxiety, panic attack, PTSD, cyclic vomiting syndrome, soft tightness, GERD, electrolyte disturbance Medical Decision Making: Plan for this patient IV establishment IV fluid bolus , IV Haldol 2.5 mg for nausea, check electrolytes and re-evaluate. Re-evaluation: 0358: Re-examination at this time patient resting comfortably she feels much better after IV Haldol and Benadryl. She is sleepy. Her anxiety is well controlled. She would like to go home. Source: Patient - Personal History LMP (Females 10-55): 1-7 Days Ago Current Tetanus Diphtheria and Acellular Pertussis (TDAP): Yes Tetanus Vaccine Date: 2011 - Medical/Surgical History Hx Asthma: Yes Hx Chronic Respiratory Disease: No Hx Diabetes: No Hx Cardiac Disease: No Hx Renal Disease: No Hx Cirrhosis: No Hx Alcoholism: No Hx HIV/AIDS: No Hx Splenectomy or Spleen Trauma: No Other PMH: PMH: anxiety, asthma, CVS (cyclic vomiting syndrome), ptsd, frequent marijuana use. PSH: T&A - Social History Smoking Status: Current some day smoker Constitutional: Initial Vital Signs Temperature (C) 36.7 C 11/01/17 01:39 Heart Rate 108 H 11/01/17 01:39 Respiratory Rate 18 11/01/17 01:39 Blood Pressure 133/74 H 11/01/17 01:39 O2 Sat (%) 100 11/01/17 01:39 O2 Delivery Mode Room Air O2 (L/minute) 2 Allergies/Adverse Reactions: aspirin Allergy (Unknown, Verified 11/01/17 01:37) Unknown amoxicillin Allergy (Verified 11/01/17 01:37) amoxicillin trihydrate [From Augmentin] Allergy (Verified 11/01/17 01:37) potassium clavulanate [From Augmentin] Allergy (Verified 11/01/17 01:37) contrast dye Allergy (Uncoded 11/01/17 01:37) Home Medications: Medication Instructions Recorded Hydroxyzine HCl 04/29/16 Zofran 04/29/16 Citalopram 06/21/16 Prazosin HCl 06/21/16 VYVANSE 06/21/16 Promethazine HCl [Phenergan 25mg 25 mg PO TID PRN #30 tab 10/24/16 (RX)] Promethazine HCl [Phenergan 25mg 25 mg PO Q4-6PRN PRN #10 tab 09/01/17 (*)] HYDROcodone/APAP 10/325 [[place] 1 - 2 each PO Q4-6PRN PRN #20 tab 10/11/17 10/325] Lidocaine 5% [Lidoderm 5% Patch 2 ea TD DAILY #10 patch 10/11/17 (*)] methylPREDNISolone [Medrol Dose 1 each PO AD #1 ea 10/11/17 Jermaine] Propranolol HCl 11/01/17 Sertraline HCl 11/01/17 Medical Decision Making - Data Points Laboratory Results: Laboratory Results 11/01/17 02:04 11/01/17 02:04 11/01/17 11/01/17 11/01/17 02:04 02:04 02:04 WBC 12.62 10^3/uL H 10^3/uL (3.80-9.50) RBC 4.79 10^6/uL 10^6/uL (4.18-5.33) Hgb 14.6 g/dL g/dL (12.6-16.3) Hct 40.4 % % (38.0-47.0) MCV 84.3 fL fL (81.5-99.8) MCH 30.5 pg pg (27.9-34.1) MCHC 36.1 g/dL g/dL (32.4-36.7) RDW 11.9 % % (11.5-15.2) Plt Count 356 10^3/uL 10^3/uL (150-400) MPV 10.0 fL fL (8.7-11.7) Neut % (Auto) 60.6 % % (39.3-74.2) Lymph % (Auto) 28.5 % % (15.0-45.0) [place] % (Auto) 8.6 % % (4.5-13.0) Eos % (Auto) 1.2 % % (0.6-7.6) Baso % (Auto) 0.8 % % (0.3-1.7) Nucleat RBC Rel Count 0.0 % % (0.0-0.2) Absolute Neuts (auto) 7.64 10^3/uL H 10^3/uL (1.70-6.50) Absolute Lymphs (auto) 3.60 10^3/uL H 10^3/uL (1.00-3.00) Absolute Monos (auto) 1.09 10^3/uL H 10^3/uL (0.30-0.80) Absolute Eos (auto) 0.15 10^3/uL 10^3/uL (0.03-0.40) Absolute Basos (auto) 0.10 10^3/uL 10^3/uL (0.02-0.10) Absolute Nucleated RBC 0.00 10^3/uL 10^3/uL (0-0.01) Immature Gran % 0.3 % % (0.0-1.1) Immature Gran # 0.04 10^3/uL 10^3/uL (0.00-0.10) Sodium 145 mEq/L mEq/L (135-145) Potassium 4.2 mEq/L mEq/L (3.5-5.2) Chloride 104 mEq/L mEq/L (97-110) Carbon Dioxide 19 mEq/l L mEq/l (22-31) Anion Gap 22 mEq/L H mEq/L (8-16) BUN 11 mg/dL mg/dL (7-23) Creatinine 0.6 mg/dL mg/dL (0.6-1.0) Estimated GFR > 60 Glucose 112 mg/dL H mg/dL (70-100) Calcium 10.0 mg/dL mg/dL (8.5-10.4) Total Bilirubin 1.1 mg/dL mg/dL (0.1-1.4) Conjugated Bilirubin 0.3 mg/dL mg/dL (0.0-0.5) Unconjugated Bilirubin 0.8 mg/dL mg/dL (0.0-1.1) AST 37 IU/L IU/L (14-46) ALT 48 IU/L IU/L (9-52) Alkaline Phosphatase 84 IU/L IU/L (38-126) Total Protein 8.2 g/dL g/dL (6.3-8.2) Albumin 5.3 g/dL H g/dL (3.5-5.0) Lipase 58 IU/L IU/L (23-300) Beta HCG, Qual NEGATIVE Medications Given: Discontinued Medications Diphenhydramine HCl (Benadryl Injection) 50 mg IVP EDNOW ONE Stop: 11/01/17 03:13 Last Admin: 11/01/17 03:14 Dose: 50 mg Haloperidol Lactate (Haldol Injection) 2.5 mg IVP EDNOW ONE Stop: 11/01/17 01:56 Last Admin: 11/01/17 02:07 Dose: 2.5 mg Sodium Chloride (Ns) 1,000 mls @ 0 mls/hr IV ONCE ONE; Wide Open PRN Reason: Protocol Stop: 11/01/17 01:49 Last Admin: 11/01/17 02:03 Dose: 1,000 mls Sodium Chloride (Ns) 1,000 mls @ 0 mls/hr IV ONCE ONE PRN Reason: Wide Open Stop: 11/01/17 03:22 Last Admin: 11/01/17 03:34 Dose: 1,000 mls Departure - Departure Disposition: Home, Routine, Self-Care Clinical Impression: Cyclic vomiting syndrome Qualifiers: Vomiting Intractability: non-intractable Nausea presence: with nausea Qualified Code(s): G43.A0 - Cyclical vomiting, not intractable Instructions: Cyclic Vomiting Syndrome (ED) Referrals: Laura Figueroa PA [Primary Care Provider] - As per Instructions
[2017-11-01 02:17] LABS: PLATELET COUNT 356 10^3/uL (150-400)
[2017-11-01 03:53] VITALS: RESP 16
[2017-11-01 04:15] VITALS: BP 123/74; PULSE 84; TEMP 97.9; O2SAT 96
== END 2017-11-01 04:15 | disposition home or self-care (01) ==
PROC: 3E0337Z Introduction of Electrolytic and Water Balance Substance into Peripheral Vein, Percutaneous Approach (ICD-10-PCS; principal; 2017-11-01)
DX: G43.A0 Cyclical vomiting, in migraine, not intractable (principal); F17.200 Nicotine dependence, unspecified, uncomplicated; J45.909 Unspecified asthma, uncomplicated; E86.9 Volume depletion, unspecified
CPT/HCPCS: 96374; J1200; J1630

== ENCOUNTER 2017-11-07 15:33 | Emergency (ER) | payer MEDICAID ==
[2017-11-07 15:44] VITALS: RESP 16
[2017-11-07] MEDS ORDERED: HALOPERIDOL LACT 5 MG/ML INJ ONE (17:52)
[2017-11-07] MEDS ORDERED: HALOPERIDOL LACT 5 MG/ML INJ IVP ONE (17:54)
[2017-11-07] MEDS ORDERED: NS 1,000 ML IV ONE (17:55)
--- NOTE | 2017-11-07 18:45 | EDPHY ---
H & P Time Seen by Provider: 11/07/17 16:36 HPI/ROS: HPI Vomiting. 27-year-old female. She is very familiar to our emergency department. She has a history of anxiety, substance abuse and cyclic vomiting. She was seen in our emergency department earlier this morning by Dr. Kip Lynn. Her complaint at that time was chest pain and nausea. She was worked up for chest pain. She had an unremarkable workup. She then started vomiting. Dr. Lynn was going to treat her with antiemetics and ketamine but she left the emergency department before this was done. She now returns complaining of vomiting and not being able to stop vomiting. She denies any significant abdominal discomfort at this time. Denies any foreign travel. No change in diet. No ill contacts. She states this is typical of her cyclic vomiting exacerbation. She was brought to the emergency department by EMS. She was given 4 mg of IV Zofran during travel. ROS: Constitutional: No fever, no chills. No weakness. Respiratory: No cough. No shortness of breath. Cardiac: No chest pain, no palpitations. Gastrointestinal: As above, no diarrhea. Genitourinary: No hematuria. No dysuria or increased frequency with urination. Musculoskeletal: No back pain. No neck pain. No myalgias or arthralgias. Skin: No rashes. Neurological: No headache. No focal weakness or altered sensation. Past medical history: Cyclic vomiting syndrome, asthma, anxiety, PTSD, frequent marijuana use, polysubstance abuse, narcotic caution. Social history: She lives hand an apartment. She has a sober ride who can take her home once her emergency department evaluation is complete. Denies alcohol. As above. Physical Exam: General Appearance: Alert, intermittent dry heaving. This patient is responding to questions appropriately and in full sentences. This patient appears well-hydrated and well-nourished. Eyes: Pupils equal and round no pallor or injection. No lid edema, erythema or injection. Respiratory: There are no retractions, lungs are clear to auscultation with good air movement bilaterally. Cardiovascular: Regular rate and rhythm. No murmur. Gastrointestinal: Abdomen is soft and nontender, no masses, bowel sounds normal. No focal tenderness at McBurney's point. No Combs sign. Neurological: Motor sensory function is grossly intact. Cranial nerves are normal. Gait is normal. Skin: Warm and dry, no rashes. Musculoskeletal: Neck is supple and nontender. Extremities are symmetrical. All joints range without pain or impingement. Psychiatric: No agitation. No depression. Database: EKG: Imaging: Procedures: Emergency department course: Vital signs reviewed and are normal. An IV was placed by EMS. She was started on 1 L of IV normal saline. After my evaluation she was given 2.5 mg of IV Haldol. 6:40 p.m., patient re-evaluated. Resting comfortably at this time. She is feeling much better. She is sleepy but easily arousable. Repeat abdominal exam she is soft, nontender nondistended. She has been sipping on ice water and eating ice chips. She feels comfortable going home at this time and is requesting discharge. She has a sober ride who can take her home. Follow-up and return to emergency department precautions reviewed with her. All of her questions were answered. She was discharged in good condition with her friend. Differential Diagnosis: The differential diagnosis on this patient includes but is not limited to exacerbation of cyclic vomiting syndrome. Small-bowel obstruction, food-borne illness, other surgical etiology of vomiting unlikely. This represents a partial list of diagnoses considered. These considerations are based on history , physical exam, past history, reassessment and diagnostic testing. Smoking Status: Former smoker Constitutional: Initial Vital Signs Temperature (C) 36.5 C 11/07/17 15:35 Heart Rate 76 11/07/17 15:35 Respiratory Rate 16 11/07/17 15:35 Blood Pressure 125/80 H 11/07/17 15:35 O2 Sat (%) 100 11/07/17 15:35 O2 Delivery Mode Room Air Allergies/Adverse Reactions: aspirin Allergy (Unknown, Verified 11/01/17 01:37) Unknown amoxicillin Allergy (Verified 11/01/17 01:37) amoxicillin trihydrate [From Augmentin] Allergy (Verified 11/01/17 01:37) potassium clavulanate [From Augmentin] Allergy (Verified 11/01/17 01:37) contrast dye Allergy (Uncoded 11/01/17 01:37) Home Medications: Medication Instructions Recorded Hydroxyzine HCl 04/29/16 Zofran 04/29/16 Citalopram 06/21/16 Prazosin HCl 06/21/16 VYVANSE 06/21/16 Propranolol HCl 11/01/17 Medical Decision Making - Data Points Medications Given: Discontinued Medications Haloperidol Lactate (Haldol Injection) 2.5 mg IVP EDNOW ONE Stop: 11/07/17 17:55 Last Admin: 11/07/17 17:56 Dose: 2.5 mg Sodium Chloride (Ns) 1,000 mls @ 0 mls/hr IV ONCE ONE; Wide Open PRN Reason: Protocol Stop: 11/07/17 17:56 Last Admin: 11/07/17 17:56 Dose: 1,000 mls Departure - Departure Disposition: Home, Routine, Self-Care Clinical Impression: Cyclic vomiting syndrome Condition: Good Instructions: Cyclic Vomiting Syndrome (ED) Additional Instructions: Read and follow provided instructions. Follow-up with your primary care physician in 1-2 days for re-evaluation. Do not smoke marijuana. Return to the emergency department for worsening symptoms, vomiting and inability to keep fluids down, worsening abdominal pain or other serious concerns. Referrals: NONE *PRIMARY CARE P,. [Primary Care Provider] - As per Instructions
[2017-11-07 19:14] VITALS: BP 108/58; PULSE 71; TEMP 98.1; O2SAT 94
== END 2017-11-07 19:12 | disposition home or self-care (01) ==
LOC: EDUNIT#
DX: G43.A0 Cyclical vomiting, in migraine, not intractable (principal); J45.909 Unspecified asthma, uncomplicated; E86.9 Volume depletion, unspecified; Z87.891 Personal history of nicotine dependence
CPT/HCPCS: 96374; J1630

== ENCOUNTER 2017-11-09 19:38 | Emergency (ER) | payer MEDICAID ==
[2017-11-09] MEDS ORDERED: HALOPERIDOL LACT 5 MG/ML INJ IVP ONE (20:02)
--- NOTE | 2017-11-09 20:10 | EDPHY ---
H & P Time Seen by Provider: 11/09/17 19:50 HPI/ROS: CHIEF COMPLAINT: Abdominal pain, vomiting HISTORY OF PRESENT ILLNESS: 27-year-old female presents to the emergency department with abdominal pain and vomiting that began today. The patient has had numerous episodes of the same symptoms. Patient was seen 2 days ago with similar symptoms. She received IV Haldol with relief. She does smoke marijuana. She describes diffuse abdominal pain and numerous episodes of vomiting. No fevers or chills. No back pain. Her mother apparently was concerned that she may have a bowel obstruction. The patient has never had abdominal surgery. She has no past history of bowel obstructions, however her mother and her grandmother have both a bowel obstruction than the requesting imaging. No chest pain or difficulty breathing. REVIEW OF SYSTEMS: Constitutional: No fever, no chills. Eyes: No double or blurry vision. ENT: No sore throat. Respiratory: No cough, no shortness of breath. Cardiac: No chest pain. Gastrointestinal: Abdominal pain, vomiting as above. No diarrhea. Genitourinary: No dysuria. Musculoskeletal: No neck or back pain. Skin: No rashes. Neurological: No headache. Past Medical/Surgical History: Anxiety, asthma, cyclical vomiting syndrome, PTSD, marijuana use Social History: and lives in [place] Smoking Status: Former smoker Physical Exam: General Appearance: Alert, moderate to severe distress. Very anxious. Tearful. at bedside. Eyes: Pupils equal and round. Extraocular motions are all intact. ENT: Mouth: Mucous membranes moist. Respiratory: No wheezing, rhonchi, or rales, lungs are clear to auscultation. Cardiovascular: Regular rate and rhythm. Gastrointestinal: Abdomen is soft. Diffusely tender to palpate. Bowel sounds are present. There is no rebound, guarding or masses noted. No CVA tenderness bilaterally. Neurological: Alert and oriented x 3, cranial nerves II through XII grossly intact Skin: Warm and dry, no rashes. Musculoskeletal: Nontender to palpate along the cervical, thoracic or lumbar spine. Neck is supple. Extremities: Full range of motion and no peripheral edema. Psychiatric: Patient is oriented X 3, there is no agitation. Constitutional: Initial Vital Signs Temperature (C) 36.8 C 11/09/17 19:48 Heart Rate 104 H 11/09/17 19:48 Respiratory Rate 20 11/09/17 19:48 Blood Pressure 120/72 11/09/17 19:48 O2 Sat (%) 100 11/09/17 19:48 O2 Delivery Mode Room Air Allergies/Adverse Reactions: aspirin Allergy (Unknown, Verified 11/09/17 19:48) Unknown amoxicillin Allergy (Verified 11/09/17 19:48) amoxicillin trihydrate [From Augmentin] Allergy (Verified 11/09/17 19:48) potassium clavulanate [From Augmentin] Allergy (Verified 11/09/17 19:48) contrast dye Allergy (Uncoded 11/01/17 01:37) Home Medications: Medication Instructions Recorded Hydroxyzine HCl 04/29/16 Zofran 04/29/16 Citalopram 06/21/16 Prazosin HCl 06/21/16 VYVANSE 06/21/16 Propranolol HCl 11/01/17 Medical Decision Making - Diagnostics Imaging Results: Imaging Impressions Abdomen X-Ray 11/09/17 20:03 Impression: Nonobstructive bowel gas pattern. Imaging: I viewed and interpreted images myself ED Course/Re-evaluation: 27-year-old female presents to the emergency department with multiple episodes of vomiting. She has diffuse, severe abdominal pain. She has been seen in the emergency department multiple times with cyclical vomiting syndrome. Patient is concerned because she feels that the pain today is worse and she is concerned about possible bowel obstruction. She states that "this runs in my family". I explained that the fact that she has not had surgery on her abdomen makes this less likely, however she requested x-ray. Two-view abdominal x-ray reveals no evidence of obstruction. Patient received 2.5 mg of IV Haldol. She was feeling much better. She was tolerating p. o. fluids and is requesting to be discharged. I encouraged her to stop smoking marijuana to follow up with railway head tender. Patient does not have an acute abdomen. I do not think imaging studies are indicated. Differential Diagnosis: Including but not limited to cyclical vomiting syndrome, electrolyte abnormality , dehydration, bowel obstruction, GERD, peptic ulcer disease, anxiety - Data Points Medications Given: Discontinued Medications Haloperidol Lactate (Haldol Injection) 2.5 mg IVP EDNOW ONE Stop: 11/09/17 20:03 Last Admin: 11/09/17 20:07 Dose: 2.5 mg Departure - Departure Disposition: Home, Routine, Self-Care Clinical Impression: Cyclic vomiting syndrome Qualifiers: Vomiting Intractability: non-intractable Nausea presence: with nausea Qualified Code(s): G43.A0 - Cyclical vomiting, not intractable Condition: Good Instructions: Cyclic Vomiting Syndrome (ED) Additional Instructions: Clear liquids and then slowly advance diet as tolerated. Abdominal Pain: Return to the Emergency Department immediately for increasing pain, fever, vomiting, or if not completely better in 8-12 hours. Stop smoking marijuana. Referrals: Barb Barrios MD [Medical Doctor] - As per Instructions Shaggy Javier MD [Medical Doctor] - As per Instructions (Sketch Artist on-call)
[2017-11-09 21:35] VITALS: BP 116/76; PULSE 95; RESP 18; TEMP 98.1; O2SAT 97
== END 2017-11-09 21:32 | disposition home or self-care (01) ==
LOC: EDUNIT#
DX: G43.A0 Cyclical vomiting, in migraine, not intractable (principal); J45.909 Unspecified asthma, uncomplicated; Z87.891 Personal history of nicotine dependence
CPT/HCPCS: 96374; J1630

== ENCOUNTER 2017-11-09 22:35 | Emergency (ER) | payer MEDICAID ==
[2017-11-09] MEDS ORDERED: FAMOTIDINE 20 MG/NACL 50 ML IV ONE (22:37)
[2017-11-09] MEDS ORDERED: NS 1,000 ML IV ONE (22:37)
[2017-11-09] MEDS ORDERED: HALOPERIDOL LACT 5 MG/ML INJ IVP ONE (22:38)
--- NOTE | 2017-11-09 22:40 | EDPHY ---
H & P HPI/ROS: HPI CHIEF COMPLAINT: Nausea vomiting seen here earlier HISTORY OF PRESENT ILLNESS: This patient very pleasant 27-year-old female who I am very familiar with she presents emergency room with nausea vomiting. She was seen here earlier today in the emergency room. She has a history of cyclic vomiting syndrome. She felt better after IV fluids and Haldol she was discharged from the emergency room. Shortly after leaving she states that she felt nauseous and had vomiting. She called 911 and the ambulance brought her back to the emergency room. She denies any significant abdominal pain. She did have a KUB earlier that showed normal bowel gas pattern. No free air. Past Medical History: PTSD, cyclic vomiting Past Surgical History: No recent surgery Social History: Smokes marijuana but has not done so in 48 hr. Denies alcohol or drugs. Family History: Noncontributory ROS REVIEW OF SYSTEMS: A comprehensive 10 point review of systems is otherwise negative aside from elements mentioned in the history of present illness. Exam Constitutional appears well nontoxic no acute distress, triage nursing summary reviewed, vital signs reviewed, awake/alert. Eyes normal conjunctivae and sclera, EOMI, PERRLA. HENT normal inspection, atraumatic, moist mucus membranes, no epistaxis, neck supple/ no meningismus, no raccoon eyes. Respiratory clear to auscultation bilaterally, normal breath sounds, no respiratory distress, no wheezing. Cardiovascular rate normal, regular rhythm, no murmur, no edema, distal pulses normal. Gastrointestinal soft, non-tender, no rebound, no guarding, normal bowel sounds, no distension, no pulsatile mass. Genitourinary no CVA tenderness. Musculoskeletal no midline vertebral tenderness, full range of motion, no calf swelling, no tenderness of extremities, no meningismus, good pulses, neurovascularly intact. Skin pink, warm, & dry, no rash, skin atraumatic. Neurologic awake, alert and oriented x 3, AAOx3, moves all 4 extremities equally, motor intact, sensory intact, CN II-XII intact, normal cerebellar, normal vision, normal speech. Psychiatric normal mood/affect. Heme/Lymph/Immune no lymphadenopathy. Differential Diagnosis: Includes but not limited to in a particular order dehydration, electrolyte disturbance, acute nausea vomiting, gastritis, esophagitis, reflux, perforated bowel. Medical Decision Making: Plan for this patient IV established with IV fluid bolus, IV Haldol, IV Pepcid and re-evaluate. Check basic blood work I did review her recent ER visit. And recent blood work. Will add on a chest x-ray, LFTs, lipase. Re-evaluation: 1221: Patient re-evaluate she is feeling much better after IV fluids and IV Haldol. She received 5 mg IV Haldol. No further vomiting. Re-examination of her abdomen is soft nontender. She is resting comfortably. Discussed return precautions with her. Additionally discussed she would like to go home. She understands return emergency room she develops worsening abdominal pain fever vomiting. Source: Patient, EMS - Personal History Tetanus Vaccine Date: 2011 - Medical/Surgical History Hx Asthma: Yes Hx Chronic Respiratory Disease: No Hx Diabetes: No Hx Cardiac Disease: No Hx Renal Disease: No Hx Cirrhosis: No Hx Alcoholism: No Hx HIV/AIDS: No Hx Splenectomy or Spleen Trauma: No Other PMH: PMH: anxiety, asthma, CVS (cyclic vomiting syndrome), ptsd, frequent marijuana use. PSH: T&A - Social History Smoking Status: Former smoker Constitutional: Initial Vital Signs Temperature (C) 36.9 C 11/09/17 22:39 Heart Rate 95 11/09/17 22:39 Respiratory Rate 18 11/09/17 22:39 Blood Pressure 108/71 11/09/17 22:39 O2 Sat (%) 99 11/09/17 22:39 O2 Delivery Mode Room Air Allergies/Adverse Reactions: aspirin Allergy (Unknown, Verified 11/09/17 22:40) Unknown amoxicillin Allergy (Verified 11/09/17 22:40) amoxicillin trihydrate [From Augmentin] Allergy (Verified 11/09/17 22:40) potassium clavulanate [From Augmentin] Allergy (Verified 11/09/17 22:40) contrast dye Allergy (Uncoded 11/09/17 22:40) Home Medications: Medication Instructions Recorded Hydroxyzine HCl 04/29/16 Zofran 04/29/16 Citalopram 06/21/16 Prazosin HCl 06/21/16 VYVANSE 06/21/16 Propranolol HCl 11/01/17 Medical Decision Making - Diagnostics Imaging Results: Imaging Impressions Chest X-Ray 11/09/17 22:39 IMPRESSION: No evidence for acute cardiopulmonary abnormality. - Data Points Laboratory Results: 11/09/17 11/09/17 23:04 23:04 Total Bilirubin 1.1 mg/dL mg/dL (0.1-1.4) Conjugated Bilirubin 0.3 mg/dL mg/dL (0.0-0.5) Unconjugated Bilirubin 0.8 mg/dL mg/dL (0.0-1.1) AST 29 IU/L IU/L (14-46) ALT 35 IU/L IU/L (9-52) Alkaline Phosphatase 56 IU/L IU/L (38-126) Total Protein 7.6 g/dL g/dL (6.3-8.2) Albumin 4.8 g/dL g/dL (3.5-5.0) Lipase 33 IU/L IU/L (23-300) Beta HCG, Qual NEGATIVE Medications Given: Discontinued Medications Haloperidol Lactate (Haldol Injection) 5 mg IVP EDNOW ONE Stop: 11/09/17 22:39 Last Admin: 11/09/17 23:09 Dose: 5 mg Sodium Chloride (Ns) 1,000 mls @ 0 mls/hr IV EDNOW ONE; Wide Open PRN Reason: Protocol Stop: 11/09/17 22:38 Last Admin: 11/09/17 23:08 Dose: 1,000 mls Famotidine/Sodium Chloride (Pepcid 20 Mg (Premix)) 50 mls @ 200 mls/hr IV EDNOW ONE Stop: 11/09/17 22:51 Last Admin: 11/09/17 23:13 Dose: 50 mls Departure - Departure Disposition: Home, Routine, Self-Care Clinical Impression: Cyclic vomiting syndrome Qualifiers: Vomiting Intractability: intractable Nausea presence: with nausea Qualified Code(s): G43.A1 - Cyclical vomiting, intractable Condition: Good Instructions: Cyclic Vomiting Syndrome (ED) Referrals: NONE *PRIMARY CARE P,. [Primary Care Provider] - As per Instructions
[2017-11-09 22:41] VITALS: TEMP 98.4
[2017-11-10 00:28] VITALS: BP 104/67; PULSE 71; RESP 14; O2SAT 96
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
== END 2017-11-10 00:32 | disposition home or self-care (01) ==
LOC: EDUNIT#
DX: G43.A1 Cyclical vomiting, in migraine, intractable (principal); E86.9 Volume depletion, unspecified; J45.909 Unspecified asthma, uncomplicated; Z87.891 Personal history of nicotine dependence
CPT/HCPCS: 96365; J1630

== ENCOUNTER 2018-03-20 19:48 | Emergency (ER) | payer MEDICAID ==
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
[2018-03-20] MEDS ORDERED: PROMETHAZINE HCL 25 MG/ML INJ IVP ONE ×2 (19:55)
[2018-03-20] MEDS ORDERED: NS 1,000 ML IV ONE ×3 (19:55→19:56)
[2018-03-20 20:11] LABS: PLATELET COUNT 352 10^3/uL (150-400)
[2018-03-20 21:58] VITALS: BP 106/62
== END 2018-03-20 22:24 | disposition home or self-care (01) ==
LOC: EDUNIT#
DX: N39.0 Urinary tract infection, site not specified (principal); B96.89 Other specified bacterial agents as the cause of diseases classified elsewhere; E86.9 Volume depletion, unspecified; J45.909 Unspecified asthma, uncomplicated; T83.32XA Displacement of intrauterine contraceptive device, initial encounter; Z87.891 Personal history of nicotine dependence; Y73.2 Prosthetic and other implants, materials and accessory gastroenterology and urology devices associated with adverse incidents
CPT/HCPCS: 80305; 96365; J0696; J2270; J2550

== ENCOUNTER 2018-04-09 20:25 | Emergency (ER) | payer SELFPAY ==
[2018-04-09] MEDS ORDERED: HALOPERIDOL LACT 5 MG/ML INJ IVP ONE (20:34)
[2018-04-09] MEDS ORDERED: LORazepam 2 MG/ML INJ IVP ONE (20:35)
[2018-04-09] MEDS ORDERED: NS 1,000 ML IV ONE ×2 (20:35)
--- NOTE | 2018-04-09 20:41 | EDPHY ---
H & P Stated Complaint: CYCLICAL VOMITING-ANXIETY D/C YEST Time Seen by Provider: 04/09/18 20:37 HPI/ROS: HPI: This is a 27-year-old female who presents with Chief Complaint: Cyclical vomiting syndrome Location: GI Quality: nausea, vomiting Duration: 24 hr Signs and Symptoms: no fever, + nausea, + vomiting, no hematemesis, no blood in stool, no abdominal bloating, no diarrhea, no back pain, no urinary symptoms, no vaginal bleeding/discharge, no indigestion, no chest pain, no shortness of breath Timing: Acute on chronic Severity: Moderate to severe Context: Patient has a history of cyclical vomiting syndrome, PTSD, frequent marijuana use presents via EMS with complaints sudden onset of acute on chronic nausea and vomiting since yesterday afternoon. She reports that she was at [facility] and recently discharged as early as yesterday morning. She is going through a divorce at this time and has lost her Medicaid. She reports that the stress is the trigger for her nausea and vomiting. She is unable to fill her prescription for Zofran due to cost. She called EMS from her house today as she is unable to keep the or drink any food or liquids times 24 hr. She reports that her menstrual period is doing 3 days. She denies any fever, urinary symptoms, abdominal pain, diarrhea. In the past she reports that she has given Haldol and Ativan with relief of her symptoms but IV opiates work the best. She has not followed with Gastroenterology in over 2 years due to lack of insurance. Her PCP is [facility]. Patient reports that she has not smoked marijuana in over 48 hr. No history of abdominal surgeries. Modifying Factors: EMS gave 12.5 mg of IV promethazine with no relief Comment: ROS: see HPI Constitutional: No fever, no chills, no weight loss Eyes: No blurred vision Respiratory: No shortness of breath, no cough Cardiovascular: No chest pain, no palpitations Gastrointestinal: + nausea, + vomiting, no diarrhea, no hematemesis, no blood in stool Genitourinary: No dysuria, no blood in urine Extremities: No myalgias, no edema Neurologic: No weakness, no numbness Skin: No rashes, no petechiae Hematologic: No bruising, no bleeding MEDICAL/SURGICAL/SOCIAL HISTORY: PMH: anxiety, asthma, CVS (cyclic vomiting syndrome), ptsd, frequent marijuana use PSH: T&A Social history: Recently . Has no health insurance. Family history noncontributory. CONSTITUTIONAL: Nontoxic appearing adult white female, actively retching, awake and alert, no obvious distress HEENT: Atraumatic and normocephalic, PERRL, EOMI. Nares patent; no rhinorrhea; no nasal mucosal edema. Tympanic membranes clear. Oropharynx clear, no exudate and moist pink mucosa. Airway patent. No lymphadenopathy. No meningismus. Cardiovascular: Normal S1/S2, tachycardia, regular rhythm, without murmur rub or gallop. PULMONARY/CHEST: Symmetrical and nontender. Clear to auscultation bilaterally. Good air movement. No accessory muscle usage. ABDOMEN: Soft, nondistended, nontender, no rebound, no guarding, no peritoneal signs, no masses or organomegaly. No CVAT. EXTREMITIES: 2/2 pulses, strength 5/5, no deformities, no clubbing, no cyanosis or edema. NEUROLOGICAL: no focal neuro deficits. GCS 15. SKIN: Warm and dry, no erythema. no rash. Good capillary refill. Source: Patient Exam Limitations: No limitations - Personal History LMP (Females 10-55): Unknown Current Tetanus Diphtheria and Acellular Pertussis (TDAP): Yes Tetanus Vaccine Date: 2011 - Medical/Surgical History Hx Asthma: Yes Hx Chronic Respiratory Disease: No Hx Diabetes: No Hx Cardiac Disease: No Hx Renal Disease: No Hx Cirrhosis: No Hx Alcoholism: No Hx HIV/AIDS: No Hx Splenectomy or Spleen Trauma: No Other PMH: PMH: anxiety, asthma, CVS (cyclic vomiting syndrome), ptsd, frequent marijuana use. PSH: T&A - Social History Smoking Status: Former smoker Constitutional: Initial Vital Signs Temperature (C) 37.0 C 04/09/18 20:31 Heart Rate 121 H 04/09/18 20:31 Respiratory Rate 16 04/09/18 20:31 Blood Pressure 130/82 H 04/09/18 20:31 O2 Sat (%) 96 04/09/18 20:31 O2 Delivery Mode Room Air Allergies/Adverse Reactions: aspirin Allergy (Unknown, Verified 11/09/17 22:40) Unknown amoxicillin Allergy (Verified 11/09/17 22:40) amoxicillin trihydrate [From Augmentin] Allergy (Verified 11/09/17 22:40) potassium clavulanate [From Augmentin] Allergy (Verified 11/09/17 22:40) contrast dye Allergy (Uncoded 11/09/17 22:40) Home Medications: Medication Instructions Recorded Promethazine HCl 25 - 50 mg PO Q4 PRN #12 tablet 03/20/18 Hydroxyzine HCl 04/09/18 Promethazine HCl [Phenergan 25mg 25 mg PO Q6 PRN #12 tab 04/09/18 (*)] VYVANSE 04/09/18 Zofran 04/09/18 Medical Decision Making ED Course/Re-evaluation: Labs, IV fluids, IV medications ordered Vital signs reviewed and show tachycardia upon arrival likely due to dehydration. Abdomen is soft and nontender. Doubt surgical abdomen. Given 2 L normal saline, IV Haldol 5 mg, IV Ativan 2 mg upon arrival. 2137: Reassessed patient who has had no vomiting since arrival. She is asking for Selvin crackers and sumeet jun. This is provided to her. 2207: Reassessed patient who is sleeping soundly in the ER stretcher. Labs reviewed. No signs of SUPRIYA/elevated LFTs/electrolyte imbalance/ pancreatitis. Patient passed p.o. Trial. Abdomen remains soft and nontender. She will be discharged home with pre packs of promethazine and Zofran and gastroenterology follow-up. Vital signs improved at discharge. Tachycardia resolved. 0: Patient awaiting ride. Sleeping soundly. This patient was seen under the supervision of my secondary supervising physician. I evaluated care for this patient independently. Discussed this patient with Dr. Brink. Differential Diagnosis: Differential diagnosis includes but is not limited to pancreatitis, gastroenteritis, gallbladder disease, cyclical admitting syndrome, depression , anxiety. - Data Points Laboratory Results: Laboratory Results 04/09/18 20:42 04/09/18 04/09/18 20:42 20:42 Sodium 139 mEq/L mEq/L (135-145) Potassium 3.8 mEq/L mEq/L (3.3-5.0) Chloride 103 mEq/L mEq/L (97-110) Carbon Dioxide 19 mEq/l L mEq/l (22-31) Anion Gap 17 mEq/L H mEq/L (8-16) BUN 15 mg/dL mg/dL (7-23) Creatinine 0.7 mg/dL mg/dL (0.6-1.0) Estimated GFR > 60 Glucose 112 mg/dL H mg/dL (70-100) Calcium 10.0 mg/dL mg/dL (8.5-10.4) Total Bilirubin 1.6 mg/dL H mg/dL (0.1-1.4) Conjugated Bilirubin 0.2 mg/dL mg/dL (0.0-0.5) Unconjugated Bilirubin 1.4 mg/dL H mg/dL (0.0-1.1) AST 21 IU/L IU/L (14-46) ALT 29 IU/L IU/L (9-52) Alkaline Phosphatase 87 IU/L IU/L (38-126) Total Protein 9.0 g/dL H g/dL (6.3-8.2) Albumin 5.4 g/dL H g/dL (3.5-5.0) Lipase 148 IU/L IU/L (23-300) Beta HCG, Qual NEGATIVE Medications Given: Discontinued Medications Haloperidol Lactate (Haldol Injection) 5 mg IVP EDNOW ONE Stop: 04/09/18 20:35 Last Admin: 04/09/18 20:46 Dose: 5 mg Sodium Chloride (Ns) 1,000 mls @ 0 mls/hr IV EDNOW ONE; Wide Open PRN Reason: Protocol Stop: 04/09/18 20:36 Last Admin: 04/09/18 20:45 Dose: 1,000 mls Sodium Chloride (Ns) 1,000 mls @ 0 mls/hr IV EDNOW ONE; Wide Open PRN Reason: Protocol Stop: 04/09/18 20:36 Last Admin: 04/09/18 20:46 Dose: 1,000 mls Lorazepam (Ativan Injection) 2 mg IVP EDNOW ONE Stop: 04/09/18 20:36 Last Admin: 04/09/18 20:46 Dose: 2 mg Ondansetron HCl (Zofran Odt 4 Mg Prepack#2) 1 btl TAKEHOME EDNOW ONE Stop: 04/09/18 22:12 Last Admin: 04/09/18 22:22 Dose: 1 btl Promethazine HCl (Phenergan 25mg Supp Prepack#4) 1 btl TAKEHOME EDNOW ONE Stop: 04/09/18 22:12 Last Admin: 04/09/18 22:35 Dose: 1 btl Departure - Departure Disposition: Home, Routine, Self-Care Clinical Impression: Cyclical vomiting syndrome Qualifiers: Vomiting Intractability: non-intractable Nausea presence: with nausea Qualified Code(s): G43.A0 - Cyclical vomiting, not intractable Condition: Good Instructions: Ondansetron (By mouth), Promethazine (Into the rectum), Dehydration (ED), Cyclic Vomiting Syndrome (ED) Additional Instructions: Consume a minimum of 8-10 glasses of water or electrolyte fluid replacement drinks that include Gatorade, Powerade, Pedialyte. Eat a bland diet for the next 48 hours and then slowly advance as tolerated. Take Zofran 1 tab every 4 hours as needed for nausea, vomiting. Take Promethazine 1 tab every 6 hr as needed for nausea and vomiting that is not relieved by Zofran. Please follow up with [facility] and gastroenterology. Case management referral made. Return to the Emergency Room if symptoms do not resolve in the next 48-72 hours , you spike a fever > 102 F, or experience intractable abdominal pain/nausea/ vomiting. Referrals: [facility],. [Clinic] - 2-3 days without fail Vita Little MD [Medical Doctor] - As per Instructions Prescriptions: Promethazine HCl [Phenergan 25mg (*)] 25 mg PO Q6 PRN #12 tab PRN Reason: Nausea/Vomiting, Use 2nd
[2018-04-09] MEDS ORDERED: ONDANSETRON 4MG PREPACK#2 BTL TAKEHOME ONE (22:11)
[2018-04-09] MEDS ORDERED: PROMETHAZINE 25MG SUPP PREPK#4 BTL TAKEHOME ONE (22:11)
[2018-04-10 00:26] VITALS: BP 118/68
== END 2018-04-10 00:26 | disposition home or self-care (01) ==
LOC: EDUNIT#
DX: G43.A0 Cyclical vomiting, in migraine, not intractable (principal); J45.909 Unspecified asthma, uncomplicated; E86.9 Volume depletion, unspecified; Z87.891 Personal history of nicotine dependence
CPT/HCPCS: 96374; J1630; J2060

== ENCOUNTER 2018-06-24 10:55 | Emergency (ER) | payer OTHER ==
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
[2018-06-24] MEDS ORDERED: IBUPROFEN 600 MG TAB PO ONE (13:08)
[2018-06-24] MEDS ORDERED: CYCLOBENZAPRINE 10 MG TAB PO ONE (13:08)
[2018-06-24 14:33] VITALS: BP 98/58
== END 2018-06-24 14:33 | disposition home or self-care (01) ==
DX: Z87.891 Personal history of nicotine dependence (principal); S16.1XXA Strain of muscle, fascia and tendon at neck level, initial encounter; S29.019A Strain of muscle and tendon of unspecified wall of thorax, initial encounter; S39.012A Strain of muscle, fascia and tendon of lower back, initial encounter; S76.011A Strain of muscle, fascia and tendon of right hip, initial encounter; V49.50XA Passenger injured in collision with unspecified motor vehicles in traffic accident, initial encounter; Y92.410 Unspecified street and highway as the place of occurrence of the external cause; Y93.9 Activity, unspecified; Y99.9 Unspecified external cause status
CPT/HCPCS: L0172